=== PATIENT | male | born 1935 | race Caucasian/White ===

== ENCOUNTER 2018-07-21 14:40 | Inpatient (IN) | payer MEDICARE ==
[~2018-07-21] VITALS: Ht 167.6 cm; Wt 85.0 kg
[~2018-07-21 14:40] MED LIST: ACET500 PO; ASCO1ER PO; Aspirin EC81 MG PO; CYAN500 PO; D3-20002000 UNIT PO; Flovent Diskus50 MCG; GLIP2.5ER PO; HYDPAM50 PO; LISI20 PO; METO50ER PO; MUCINEX FAST-M1 EAC1 PO; MULVITMINF PO; OMEP20ER PO; OXYACE5T PO; PIOG30 PO; PSYL5.85P; Pataday2.5 ML BOTHEYES; VITAMIN D3 PO; Vitamin C1000 M1; WARF5 PO; XARELTO
[2018-07-21 15:43] LABS: BASOPHILS ABSOLUTE AUTO 0.01 K/mm3 (0.00-0.23); BASOPHILS PERCENT AUTO 1 % (0-2); EOSINOPHILS ABSOLUTE AUTO 0.01 K/mm3 (0.00-0.68); EOSINOPHILS PERCENT AUTO 1 % (0-6); Hematocrit 39.3 % (37.0-53.0); Hemoglobin 12.3 g/dL (13.5-17.5); IMMATURE GRAN PERCENT AUTO 0 % (0-1); LYMPHOCYTES ABSOLUTE AUTO 0.49 K/mm3 (0.84-5.20); LYMPHOCYTES PERCENT AUTO 27 % (21-46); MONOCYTES ABSOLUTE AUTO 0.02 K/mm3 (0.16-1.47); MONOCYTES PERCENT AUTO 1 % (4-13); Mean Corpuscular HGB 30.3 pg (26.0-34.0); Mean Corpuscular HGB Conc 31.3 g/dL (31.5-36.5); Mean Corpuscular Volume 97 fL (80-100); Mean Platelet Volume 10.4 fL (9.1-12.4); NEUTROPHILS PERCENT AUTO 71 % (41-73); Platelet Count 88 K/mm3 (150-400); RDW Coefficient Variation 14.6 % (11.7-14.2); RDW Standard Deviation 52.7 fL (35.1-46.3); Red Blood Cell Count 4.06 M/mm3 (4.30-5.90); White Blood Cell Count 1.83 K/mm3 (4.00-11.30)
[2018-07-21 16:14] LABS: Albumin, Blood 3.4 g/dL (3.4-5.0); Bilirubin, Total 1.7 mg/dL (0.1-1.0); Bun/Creatinine Ratio 18.8 (12.0-20.0); Calcium, Blood 8.5 mg/dL (8.5-10.1); Creatinine, Blood 1.28 mg/dL (0.60-1.20); Globulin, Blood 3.3 g/dL (2.2-4.0); Potassium, Blood 3.9 mmol/L (3.5-5.5); Total Protein, Blood 6.7 g/dL (6.4-8.2); Troponin I 0.421 ng/mL (0.000-0.040)
[2018-07-21 17:29] LABS: Source, Urine Clean Catch
[2018-07-21 17:47] LABS: Appearance, Urine Cloudy (Clear); Bilirubin, Urine Neg (Neg); Blood, Urine 5+ (Neg); Color, Urine Amber (P-Yellow); Glucose Qualitative, Urine Neg (Neg); Ketones, Urine 1+ (Neg); Leukocyte Esterase, Urine 3+ (Neg); Nitrite, Urine Pos (Neg); Protein, Urine 3+ (Neg); Urobilinogen, Urine NORM (Normal)
[2018-07-21 18:07] LABS: Squamous Epithelial Cells Not Seen /hpf (Few)
[2018-07-21 18:08] LABS: Bacteria Many /hpf; Red Blood Cells, Urine TNTC /hpf (0-2); White Blood Cells, Urine TNTC /hpf (0-5)
--- NOTE | 2018-07-21 19:15 | NUR ---
ASSUMING CARE OF PT AT THIS TIME. PT REPORT RECEIVED AT BEDSIDE WITH OFFGOING NURSE, RAMON PENNY. PT LAYING IN BED, SLEEPING UPON ENTERING THE ROOM. PT HYPOTENSIVE (SEE VS FS). OTHERWISE, VS STABLE (SEE VS FS). DR. AMBROCIO AT BEDSIDE AT THIS TIME. DR. AMBROCIO INSTRUCTED TO ADMINISTERED 1L NS BOLUS AND ALBUMIN 25 MG AT THIS TIME. WAITING FOR VERIFICATION OF MEDICATIONS AND WAITING FOR ALBUMIN FROM PHARMACY AT THIS TIME. OTHERWISE, PT DOES NOT APPEAR TO BE IN DISTRESS AT THIS TIME. NO FAMILY AT BEDSIDE. WILL REVIEW PLAN OF CARE.
--- NOTE | 2018-07-21 19:17 | NUR ---
Patient arrived from ER with two liters of NS infusing and finishing. Started NS with 20meq of potassium at 125ml/hr, Placed 10Fr hopkins catheter difficult placement and got back dark laurita urine. Did not send UA as there was one done with in and out cath in ER. He has 20ga IV in [place] infusing fluids, dressing intact and site WNL's. He also has 20 ga RW dressing intact and site WNL's and is flushed and SL's.
--- NOTE | 2018-07-21 19:30 | NUR ---
ASSESSMENT HEMALATHA NAVARRO AT BEDSIDE TO INSERT PICC LINE. UNABLE TO INSERT PICC LINE AT THIS TIME. 1L NS BOLUS INFUSING. ALBUMIN 25G INFUSING. DR. AMBROCIO PLANNING TO COME BACK TO BEDSIDE. PT RESPONDS TO VEBRAL STIMULI, SPONT OPENS EYES, CALM, QUIET, COOPERATIVE, A&O TO SELF, FOLLOWS COMMANDS, SLOW TO RESPOND, CONFUSED, HARD OF HEARING, ANSWERS SOME QUESTIONS. PT'S SIGNIFICANT OTHER, CHRISTIE, AT BEDSIDE. PT AND CHRISTIE UNABLE TO PROVIDE MEDICAL HISTORY AND MEDICATION LIST. ACCORDING TO CHRISTIE, PT HAS BEEN EXPERIEICING DEMENTIA AND LIVES ALONE IN A HOUSE. SENSATION INTACT. DENIES N/T. PT SEPULVEDA. WEAK MOVEMENT NOTED. PT ASSISTS WITH REPOSITIONING. PT BEDBOUND D/T HYPOTENSION. PT DENIES PAIN/DISCOMFORT. NO S/SX OF PAIN/DISCOMFORET NOTED. LUNGS CLEAR, LOWER LOBES DIMINIHSED. PT ON RA WHILE AWAKE WITH OXY SAT 90% AND GREATER. PT PLACED ON 2L NC WHILE SLEEPING. OXY SAT 90% AND GREATER WHILE ON 2L NC AND SLEEPING. OCC NONRODUCTIVE, WEAK COUGH. RR 18. DENIES SOB. AFEBRILE. NSR WITH BBB AND FREQUENT PAC'S. OCC PACEMAKER SPIKES. PT HYPOTESNSIVE. 1L NS BOLUS AND ALBUMIN 25G INFUSING. NS WITH KCL 20 MEQ INFUSING AT 125 ML/HR. STRONG RADIAL PULSES. FAINT TIBIAL AND PEDAL PULSES. WARM, PALE SKIN. HYPOACTIVE BT X4 QUADRANTS. ABD SOFT, NONTENDER. NO N/V. NO BM. NPO. F/C PLACED BY HEMALATHA NAVARRO PRIOR TO ONCOMING SHIFT. DARK, DOC UO NOTED. PIV X2. NS WITH KCL 20 MEQ AT 125 ML/HR INFUSING.
--- NOTE | 2018-07-21 21:10 | NUR ---
DR. AMBROCIO PT REMAINS HYPOTENSIVE (SEE VS FS). ALBUMIN 25 MG FINISHED INFUSING. 1L NS BOLUS CONTINUES TO INFUSE. DR AMBROCIO AT BEDSIDE TO RECEIVE PT HX FROM CHRISTIE (PT'S SIGNIFICANT OTHER). CHRISTIE UNABLE OT PROVIDE EXTENSIVE MEDICATION AND MEDICAL HX. PT UNABLE TO PROVIDE MEDICAITION AND MEDICAL HX. DR. AMBROCIO ORDERED ADDITIONAL ALBUMIN 25 MG AT THIS TIME. WAITING FOR MEDICATION FROM PHARMACY AT THIS TIME. DR. AMBROCIO PLANNING TO INSERT CENTRAL LINE. KRYSTA SOTO RN AT BEDSIDE TO ASSIST WITH CENTRAL LINE INSERTION.
--- NOTE | 2018-07-21 22:45 | NUR ---
CENTRAL LINE INSERTION HEMALATHA LU AND HEMALATHA SOTO ASSISTED WITH CENTRAL LINE INSERTION. LEVOPHED STARTED WHILE INSERTING CENTRAL LINE. LEVOPHED DRIP - WILL TITRATE TO EFFECT. CENTRAL LINE INSERTION REQUIRED SEVERAL ATTEMPTS. SEE WOUND ASSESSMENT FOR FURTHER INFORMATION. CENTRAL LINE INSERTED IN LEFT GROIN SITE. DR. AMBROCIO VERIFIED PLACEMENT OF CENTRAL LINE. CHEST XRAY COMPLETED. DR AMBROCIO VERIFIED THERE IS NO PNEUMO. DR. AMBROCIO PLANNING TO REVIEW PT'S CHART. DR. AMBROCIO INSTRUCTED TO D/C LOVENOX, TITRATE LEVOPHED TO MAINTAIN MAP 60 AND GREATER, AND TITRATE OXYGEN TO MAINTAIN SPO2 88% AND GREATER. DR. AMBROCIO PLANNING TO ODER ADDITIONAL ALBUMN 25G. WAITING FOR ALBUMIN FROM PHARMACY AT THIS TIME. DR AMBROCIO PLANNING TO INCREASED NS WITH 20 MEQ OF KCL TO 150 ML/HR. WAITING FOR ORDER AT THIS TIME.
--- NOTE | 2018-07-21 23:20 | NUR ---
DR. AMBROCIO PT PULLING AT LINES/CORDS/TUBES. PT PULLED ON SPO2 PROBE, BP CUFF, TELE MONITORS, AND DNR BAND. NEW SPO2 PROBE, BP CUFF, TELE MONITORS, AND DNR BAND PLACED. PT PLACED IN BILAT WRIST RESTRAINTS TO PROTECT VITAL LINES/CORDS/TUBES.
[2018-07-22 03:31] LABS: Hematocrit 28.1 % (37.0-53.0); Mean Corpuscular HGB 30.9 pg (26.0-34.0); Mean Corpuscular Volume 97 fL (80-100); Mean Platelet Volume 10.8 fL (9.1-12.4); RDW Coefficient Variation 14.9 % (11.7-14.2); Red Blood Cell Count 2.91 M/mm3 (4.30-5.90); White Blood Cell Count 8.86 K/mm3 (4.00-11.30)
[2018-07-22 03:45] LABS: Platelet Count 49 K/mm3 (150-400)
[2018-07-22 03:51] LABS: Albumin, Blood 3.2 g/dL (3.4-5.0); Albumin/Globulin Ratio 1.3 (0.8-1.8); Bilirubin, Total 1.1 mg/dL (0.1-1.0); Bun/Creatinine Ratio 17.4 (12.0-20.0); Calcium, Blood 7.2 mg/dL (8.5-10.1); Creatine Kinase MB 3.6 ng/mL (0.0-3.6); Creatine Kinase MB Index 0.9 (0.0-4.0); Creatinine, Blood 1.67 mg/dL (0.60-1.20); Globulin, Blood 2.4 g/dL (2.2-4.0); Magnesium, Blood 1.4 mg/dL (1.6-2.4); Phosphorus, Blood 3.1 mg/dL (2.5-4.9); Potassium, Blood 3.1 mmol/L (3.5-5.5); Total Protein, Blood 5.6 g/dL (6.4-8.2)
[2018-07-22 04:16] LABS: Troponin I 0.838 ng/mL (0.000-0.040)
--- NOTE | 2018-07-22 04:30 | NUR ---
DR. AMBROCIO PAGED DR. AMBROCIO AT [id number]. [address]. AMBROCIO CALLED ICU AT THIS TIME. INFORMED DR. AMBROCIO OF AM LABS. DR. AMBROCIO D/C NS WITH KCL 20 MEQ AT 150 ML/HR, ORDERED 1/2 NS WITH KCL 20 MEQ @ 150 ML/HR, ORDERED KCL 40 MEQ IVPB, AND ORDERED MAG IVPB 2,000 MG. WAITING FOR MEDICATIONS FROM PHARMACY AT THIS TIME.
--- NOTE | 2018-07-22 04:49 | NUR ---
SHIFT ASSESSMENT PT RESPONDS TO VERBAL STIMULI, SPONT OPENS EYES, CALM, QUIET, COOPERATIVE, A&O TO SELF, FOLLOWS COMMANDS, SLOW TO RESPOND, CONFUSED, HARD OF HEARING, ANSWERS SOME QUESTIONS. PT IN BILAT WRIST RESTRAINTS TO PROTECT VITAL LINES/CORDS/TUBES. BED ALARM ON. SIDE RAILS UP. SENSATION INTACT. DENIES /T. PT SEPULVEDA. WEAK MOVEMENT NOTED. PT ASSISTS WITH REPOSITIOPNING. PT DENIES PAIN/DISCOMOFRT. NO S/SX OF PAIN/DISCOMFORT NOTED. LUNGS CLEAR, LOWER LOBES DIMINISHED. PT ON RA WHILE AWAKE. OXY SAT 90% AND GREATER WHILE ON RA AND AWAKE. OXY SAT <88% WHILE ON RA AND SLEEPING. THUS, PT PLACED ON 2L NC WHILE SLEEPING. OXY SAT REMAINED 90% AND GREATER ON 2L NC WHILE SLEEPING. ACCORDING TO CHRISTIE, PT DOES NOT UTILIZE OXYGEN, CPAP, OR BIPAP AT HOME. OCC NONPRODUCTIVE, WEAK COUGH. RR 16 TO 30'S. DENIES SOB. TMAX 99.3 THAT RESOLVED WITH FAN, DECREASING ROOM TEMP, AND REMOVING BLANKETS. CURRENTLY AFEBRILE. NSR WITH BBB AND FREQ PAC'S. OCC PACEMAKER SPIKES. HYPOTENSION RESOLVED T/O SHIFT WITH 1L NS BOLUS, ALBUMIN, AND LEVOPHED DRIP. LEVOPHED DRIP CURRENTLY ON STANDBY. STRONG RADIAL PULSES. FAINT TIBIAL AND PEDAL PULSES. WARM, PALE SKIN. NO CHANGES TO WOUND SITES. WOUND SITES REMAIN STABLE. SEE WOUND ASSESSMENT FOR ADDITIONAL INFORMATION. HYPOACTIVE BT X4 QUADRANTS. ABD SOFT, NONTENDER. NO N/V. NO BM. NPO. F/C: DARK DOC COLORED UO. PIV X2. NS WITH KCL 20 MEQ INFUSING AT 150 ML/HR. WAITING FOR VERIFICATION OF 1/2 NS WITH KCL 20 MEQ AT 150 ML/HR, KCL 40 MEQ, AND MAG IVPB 2,000 MG FROM PHARMACY AT THIS TIME. WILL CONT TO MONITOR PT AND WILL PROVIDE BEDSIDE REPORT TO ONCOMING NURSE THIS AM.
[2018-07-22 05:43] LABS: BAND PERCENT MAN 10 % (0-8); BASOPHILS PERCENT MAN 0 % (0-2); EOSINOPHILS PERCENT MAN 0 % (0-6); LYMPHOCYTES ABSOLUTE MAN 0.08 K/mm3 (0.84-5.20); LYMPHOCYTES PERCENT MAN 1 % (21-46); METAMYELOCYTE ABSOLUTE MAN 0.08 K/mm3 (0.00-0.00); METAMYELOCYTE PERCENT MAN 1 % (0-0); MONOCYTES PERCENT MAN 0 % (4-13); NEUTROPHILS ABSOLUTE MAN 8.68 K/mm3 (1.96-9.15); SEG NEUTROPHILS PERCENT MAN 88 % (41-73); TOTAL CELLS COUNTED 100
--- NOTE | 2018-07-22 09:47 | NUR ---
CARE ASSUMED CARE AND REPORT ASSUMED FROM ALY PENNY. PT SITTING UP IN BED. CONFUSED AT START OF SHIFT AND IN BUE IN RESTRAINTS. REMOVED DURING AM ASSESSMENT PT WAS MUCH MORE A/O. NOW ORIENTED TO PERSON, TIME, AND JUST NEEDED TO BE REMINDED HE WAS IN THE HOSPITAL. ALSO REMINDED PT TO LEAVE HIS TOBIAS CATHETER ALONE AND HIS CENTRAL LINE; DISPLAYS UNDERSTANDING. UP TO BEDSIDE COMMODE WITH 1 ASSIST; RECEIVED BEDBATH AND LINEN CHANGE. PT HAS BEEN COOPERATIVE AND ENGAGED IN CARE THIS AM. VSS. NSR, 60S WITH OCCASIONAL PACER SPIKES. BP 104/70. NO S/S PAIN. TEMP 99.1. TOBIAS CATH SECURED, URINE YELLOW AND CLOUDY. CENTRAL LINE SECURED IN L GROIN. 1/2 NS WITH 20 KCL INFUSING ALONG WITH K+ REPLACEMENT. HARD OF HEARING. SPEECH EVAL AT BEDSIDE NOW. WILL CONTINUE TO MONITOR.
--- NOTE | 2018-07-22 12:24 | NUR ---
REASSESSMENT PASSED SPEECH EVAL THIS AM AND SOFT DIET ORDERED. HAS HAD MULTIPLE DIARRHEA BOWEL MOVEMENTS. HAD 3 BLOODY DIARRHEA BOWEL MOVEMENTS. UP TO BEDSIDE COMMODE WITH 1 ASSIST. PT OOZING FROM L GROIN CENTRAL LINE INSERTION SITE AND FROM OTHER ATTEMPT SITES IN R GROIN AND NECK. MD LIN AWARE OF DIARRHEA, BLOODY OOZE FROM SITES, AND BLOODY BOWEL MOVEMENTS. GI CONSULT CALLED TO MD LONGORIA. 1/2 NS WITH 20 KCL CONTINUES TO INFUSE PER ORDER. PT CONFUSED WHEN ASKED QUESTIONS, BUT IS ABLE TO FOLLOW COMMANDS APPROPRIATELY. FRIEND BEDSIDE AND VISITED WITH PT FOR AWHILE. WILL CONTINUE TO MONITOR.
[2018-07-22 16:55] LABS: Hematocrit 28.7 % (37.0-53.0); Hemoglobin 9.2 g/dL (13.5-17.5)
--- NOTE | 2018-07-22 18:33 | NUR ---
SHIFT SUMMARY PT CONFUSED IN AM BUT THIS AFTERNOON, HE IS MORE ALERT AND ORIENTED X 3. COMPLAINED OF MILD ABDOMINAL PAIN DURING SHIFT. UP TO BEDSIDE COMMODE MULITPLE TIMES FOR DIARRHEA; WITH 2-3 BLOODY BOWEL MOVEMENTS. MD LONGORIA CONSULTED AND PLAN IS TO MONITOR FOR NOW. NO PRESSORS DURING ENTIRE SHIFT. CENTRAL LINE DRESSING CHANGED THIS AFTERNOON, SINCE PT HAD BEEN OOZING FROM INSERTION SITE. TOBIAS CATH REMAINS PATENT AND HAS DONE SO ENTIRE SHIFT. VISITED WITH SPECIAL FRIEND AT BEDSIDE DURING SHIFT. VSS ENTIRE SHIFT WITH MAP GREATER THAN 65. NO VOMITING DURING SHIFT. WILL GIVE BEDSIDE, HANDOFF REPORT TO NOC RN.
--- NOTE | 2018-07-22 19:00 | NUR ---
ASSUMPTION OF CARE: Pt resting in bed, A&O x4, up to BSC with one person assist. Pt hard of hearing, follows commands appropriately. VSS, pt denies any pain at this time. Peripheral IV x2, SL. Central line to Lt groin, infusing fluids, dressing intact with scant blood drainage noted from insertion site. Bruising noted to Rt neck and Rt groin area. Bryant intact and draining cloudy, dark yellow urine. Pt notes occasional GI discomfort and diarrhea.
--- NOTE | 2018-07-22 22:45 | NUR ---
HOPKINS CATHETER: Pt found attempting to get out of bed with hopkins drainage tube disconnected and on floor. Sterile technique used to clean distal end of catheter and new drainage bag connected. Hopkins was not replaced due to small catheter size and difficult insertion. Pt reeducated public relations consultant light and bed alarm activated at this time.
--- NOTE | 2018-07-23 00:31 | NUR ---
Change in fluid rate: Patient noted to have expiratory wheezing in upper lobes and fine crackles in rt middle/lower lobes. Patient continues to maintain O2-94-96% on RA and denies SOB/dyspnea. Contacted Dr. Escoto and expressed concern for possible fluid overload. Received order to decrease 1/2NS with 20meq KCl form 150ml/hr to 75ml/hr. Will continue to monitor.
[2018-07-23 04:13] LABS: Hematocrit 29.2 % (37.0-53.0); Hemoglobin 9.4 g/dL (13.5-17.5); Mean Corpuscular HGB 30.9 pg (26.0-34.0); Mean Corpuscular HGB Conc 32.2 g/dL (31.5-36.5); Mean Corpuscular Volume 96 fL (80-100); Mean Platelet Volume 10.7 fL (9.1-12.4); RDW Coefficient Variation 14.9 % (11.7-14.2); RDW Standard Deviation 53.1 fL (35.1-46.3); Red Blood Cell Count 3.04 M/mm3 (4.30-5.90); White Blood Cell Count 7.33 K/mm3 (4.00-11.30)
[2018-07-23 04:27] LABS: Platelet Count 40 K/mm3 (150-400)
[2018-07-23 04:35] LABS: Alanine Aminotransfer (ALT/SGP 64 U/L (12-78); Albumin, Blood 2.9 g/dL (3.4-5.0); Albumin/Globulin Ratio 1.1 (0.8-1.8); Alk Phos 60 U/L (50-136); Anion Gap 9 mmol/L (6-16); Aspartate Aminotrans (AST/SGOT 86 U/L (12-37); Bilirubin, Total 0.7 mg/dL (0.1-1.0); Blood Urea Nitrogen 23 mg/dL (8-24); Bun/Creatinine Ratio 25.3 (12.0-20.0); CO2, Blood 19 mmol/L (21-32); Calcium, Blood 7.6 mg/dL (8.5-10.1); Chloride, Blood 117 mmol/L (98-108); Creatinine, Blood 0.91 mg/dL (0.60-1.20); Globulin, Blood 2.6 g/dL (2.2-4.0); Glomerular Filtration Rate >60 (60-); Glucose, Blood 102 mg/dL (70-99); Potassium, Blood 3.7 mmol/L (3.5-5.5); Sodium, Blood 145 mmol/L (136-145); Total Protein, Blood 5.5 g/dL (6.4-8.2)
[2018-07-23 04:44] LABS: Troponin I 0.902 ng/mL (0.000-0.040)
[2018-07-23 05:16] LABS: BAND PERCENT MAN 18 % (0-8); BASOPHILS PERCENT MAN 0 % (0-2); EOSINOPHILS PERCENT MAN 0 % (0-6); LYMPHOCYTES ABSOLUTE MAN 0.29 K/mm3 (0.84-5.20); LYMPHOCYTES PERCENT MAN 4 % (21-46); METAMYELOCYTE ABSOLUTE MAN 0.07 K/mm3 (0.00-0.00); METAMYELOCYTE PERCENT MAN 1 % (0-0); MONOCYTES ABSOLUTE MAN 0.07 K/mm3 (0.16-1.47); MONOCYTES PERCENT MAN 1 % (4-13); NEUTROPHILS ABSOLUTE MAN 6.74 K/mm3 (1.96-9.15); SEG NEUTROPHILS PERCENT MAN 74 % (41-73); TOTAL CELLS COUNTED 100
[2018-07-23 05:17] LABS: MYELOCYTE ABSOLUTE MAN 0.14 K/mm3 (0.00-0.00); MYELOCYTE PERCENT MAN 2 % (0-0)
--- NOTE | 2018-07-23 06:42 | NUR ---
SHIFT SUMMARY: Pt remains alert and oriented x4, VSS with O2 92-96% on RA. Pt developed fine crackles in lower lobes, maintenance fluids were decreased to 75ml and a one time dose of lasix was given as per provider orders. Pt up to BSC several times throughout shift with scant to small brown loose stool. Pt attempted to get out of bed without assistance (see TOBIAS CATH note), was reeducated rehabilitation services director light use and continued to use call light appropriately throughout shift. Tobias cath in place and draining cloudy, dark, yellow urine. Peripheral IV in place to SL and Central line to L groin in place and infusing.
--- NOTE | 2018-07-23 09:38 | NUR ---
PT ASSISTED TO BATHROOM TWICE THIS AM. SLIGHTLY WEAK BUT STEADY ON FEET. PT HAD TWO SMALL LIQUID GREEN BM'S. PT DENIES C/O NAUSEA OR ABD PAIN. PT IS VERY RELUCTANT TO DRINK FLUIDS HE STATES THEY GO STRAIGHT THROUGH ME. PT ENCOURAGED TO DRINK CLEAR ENSURE IN WHICH HE DID. DR LONGORIA IN TO SEE PT; NO PLANS FOR A SCOPE.
--- NOTE | 2018-07-23 19:19 | NUR ---
TRANSFER NOTE/ SHIFT SUMMARY RECEIVED REPORT FROM ALYSSA SCHAFFER RN IN ICU. PT TO ROOM AT 1350. PT ORIENTED TO ROOM AND CALL LIGHT. PT EDUCATED ON FALL RISK AND BED ALARM. PT A&Ox3, CONFUSED AT TIMES, EASILY REDIRECTABLE. PT DENIES PAIN AND N/V DURING SHIFT. SOB WITH EXERTION, >92% ON RA, LS CRACKLE IN BASES. PT RECEIVING ANTIBIOTICS. TOBIAS PATENT AND DRAINING. PT CONTINUES TO HAVE SMALL, LOOSE, GREEN BM, SPECIMEN COLLECTED AND SENT PER ORDERS. ELEVATED BP NOTED, OTHER VSS. 1 PERSON ASSIST TO BSC. NO OTHER ACUTE CHANGES NOTED DURING SHIFT. REPORT GIVEN TO ONCOMING RN.
[2018-07-23 20:09] LABS: Adenovirus F 40/41 Not Detected (NOT DETECT); Astrovirus Not Detected (NOT DETECT); Campylobacter Sp Not Detected (NOT DETECT); Cryptosporidium Not Detected (NOT DETECT); Cyclospora Cayetanensis Not Detected (NOT DETECT); E. Coli O157 Not Detected (NOT DETECT); Entamoeba Histolytica Not Detected (NOT DETECT); Enteroaggregative E. coli-EAEC Not Detected (NOT DETECT); Enteropathogenic E. coli-EPEC Not Detected (NOT DETECT); Enterotoxigenic E. coli-ETEC Not Detected (NOT DETECT); Giardia Lamblia Not Detected (NOT DETECT); Norovirus GI/GII Not Detected (NOT DETECT); Plesiomonas Shigelloides Not Detected (NOT DETECT); Rotavirus A Not Detected (NOT DETECT); Salmonella Sp Not Detected (NOT DETECT); Sapovirus Not Detected (NOT DETECT); Shiga Toxin-prod E. coli-STEC Not Detected (NOT DETECT); Shigella/Enteroin E. coli-EIEC Not Detected (NOT DETECT); Vibrio Cholerae Not Detected (NOT DETECT); Vibrio Sp Not Detected (NOT DETECT); Yersinia Enterocolitica Not Detected (NOT DETECT)
[2018-07-24 05:18] LABS: BASOPHILS PERCENT AUTO 0 % (0-2); EOSINOPHILS PERCENT AUTO 0 % (0-6); Hemoglobin 9.8 g/dL (13.5-17.5); IMMATURE GRAN ABSOLUTE AUTO 0.03 K/mm3 (0.00-0.10); IMMATURE GRAN PERCENT AUTO 0 % (0-1); LYMPHOCYTES ABSOLUTE AUTO 0.69 K/mm3 (0.84-5.20); LYMPHOCYTES PERCENT AUTO 9 % (21-46); MONOCYTES ABSOLUTE AUTO 0.31 K/mm3 (0.16-1.47); MONOCYTES PERCENT AUTO 4 % (4-13); Mean Corpuscular HGB 30.9 pg (26.0-34.0); Mean Corpuscular HGB Conc 32.7 g/dL (31.5-36.5); Mean Corpuscular Volume 95 fL (80-100); Mean Platelet Volume 11.7 fL (9.1-12.4); NEUTROPHILS ABSOLUTE AUTO 6.38 K/mm3 (1.96-9.15); NEUTROPHILS PERCENT AUTO 86 % (41-73); RDW Coefficient Variation 14.4 % (11.7-14.2); RDW Standard Deviation 50.5 fL (35.1-46.3); Red Blood Cell Count 3.17 M/mm3 (4.30-5.90); White Blood Cell Count 7.41 K/mm3 (4.00-11.30)
[2018-07-24 05:43] LABS: Alanine Aminotransfer (ALT/SGP 54 U/L (12-78); Albumin, Blood 2.8 g/dL (3.4-5.0); Alk Phos 56 U/L (50-136); Anion Gap 8 mmol/L (6-16); Aspartate Aminotrans (AST/SGOT 60 U/L (12-37); Bilirubin, Total 0.8 mg/dL (0.1-1.0); Blood Urea Nitrogen 19 mg/dL (8-24); Bun/Creatinine Ratio 24.8 (12.0-20.0); CO2, Blood 20 mmol/L (21-32); Calcium, Blood 7.7 mg/dL (8.5-10.1); Chloride, Blood 118 mmol/L (98-108); Creatinine, Blood 0.77 mg/dL (0.60-1.20); Globulin, Blood 2.8 g/dL (2.2-4.0); Glomerular Filtration Rate >60 (60-); Glucose, Blood 113 mg/dL (70-99); Magnesium, Blood 1.8 mg/dL (1.6-2.4); Phosphorus, Blood 2.3 mg/dL (2.5-4.9); Platelet Count 46 K/mm3 (150-400); Potassium, Blood 3.6 mmol/L (3.5-5.5); Sodium, Blood 146 mmol/L (136-145); Total Protein, Blood 5.6 g/dL (6.4-8.2); Troponin I 0.187 ng/mL (0.000-0.040)
--- NOTE | 2018-07-24 06:38 | NUR ---
SHIFT SUMMARY: NO ACUTE CHANGES TONIGHT. 1/2NS c 20MEQ K+ RUNNING AT 75ML/HR. TELE IN PLACE: 60'S c BBB PACED PER BAGGAGEMASTER TIMO KENNEY. CRITICALLY LOW PLATELET LEVEL OF 46. UP FROM 40 YESTERDAY. PT IS ALERT TO SELF, PLACE, AND FOLLOWING DIRECTIONS, VERY POARCH. NO OTHER CHANGES TO REPORT WILL CONT TO MONITOR AND PROVIDE CARE UNTIL PRESUMED BY ONCOMING RN.
--- NOTE | 2018-07-24 11:48 | NUR ---
echocardiogram completed
--- NOTE | 2018-07-24 19:46 | NUR ---
SHIFT SUMMARY PT A&Ox2, PLEASANTLY CONFUSED. PT CALM AND COOPERATIVE WITH CARE. PT RESTING IN BED DURING SHIFT. UP WITH 1 PERSON ASSIST TO BSC. PT DENIES PAIN/DISCOMFORT, SOB AND N/V DURING SHIFT. PT RECEIVING IV ANTIBIOTICS. PT CONTINUES TO HAVE BROWN/GREE LOOSE STOOL. PLT TRENDING UP, SHENA NAVARRO FROM ICU REMOVED THE FEMORAL LINE THIS AFTERNOON, MINIMAL BLEEDING NOTED. ECHO COMPLETED THIS AM. BP TRENDING DOWN, VSS. PT NEEDING TO CONTINUE IV ANTIBIOTICS OUTPATIENT, PLANS FOR SAFE DISCHARGE. TOBIAS REMOVED, PT USING URINAL THIS AFTERNOON. NO OTHER ACUTE CHANGES NOTED. REPORT GIVEN TO ONCOMING RN.
[2018-07-25 05:26] LABS: BASOPHILS ABSOLUTE AUTO 0.01 K/mm3 (0.00-0.23); BASOPHILS PERCENT AUTO 0 % (0-2); EOSINOPHILS ABSOLUTE AUTO 0.01 K/mm3 (0.00-0.68); EOSINOPHILS PERCENT AUTO 0 % (0-6); Hematocrit 32.6 % (37.0-53.0); Hemoglobin 10.8 g/dL (13.5-17.5); IMMATURE GRAN ABSOLUTE AUTO 0.05 K/mm3 (0.00-0.10); IMMATURE GRAN PERCENT AUTO 1 % (0-1); LYMPHOCYTES ABSOLUTE AUTO 1.08 K/mm3 (0.84-5.20); LYMPHOCYTES PERCENT AUTO 20 % (21-46); MONOCYTES ABSOLUTE AUTO 0.29 K/mm3 (0.16-1.47); MONOCYTES PERCENT AUTO 5 % (4-13); Mean Corpuscular HGB 30.8 pg (26.0-34.0); Mean Corpuscular HGB Conc 33.1 g/dL (31.5-36.5); Mean Corpuscular Volume 93 fL (80-100); Mean Platelet Volume 11.5 fL (9.1-12.4); NEUTROPHILS ABSOLUTE AUTO 4.08 K/mm3 (1.96-9.15); NEUTROPHILS PERCENT AUTO 74 % (41-73); Platelet Count 59 K/mm3 (150-400); RDW Standard Deviation 48.4 fL (35.1-46.3); Red Blood Cell Count 3.51 M/mm3 (4.30-5.90); White Blood Cell Count 5.52 K/mm3 (4.00-11.30)
[2018-07-25 05:57] LABS: Anion Gap 9 mmol/L (6-16); Blood Urea Nitrogen 19 mg/dL (8-24); Bun/Creatinine Ratio 25.3 (12.0-20.0); CO2, Blood 24 mmol/L (21-32); Calcium, Blood 8.2 mg/dL (8.5-10.1); Chloride, Blood 111 mmol/L (98-108); Creatinine, Blood 0.75 mg/dL (0.60-1.20); Glomerular Filtration Rate >60 (60-); Glucose, Blood 116 mg/dL (70-99); Magnesium, Blood 1.5 mg/dL (1.6-2.4); Phosphorus, Blood 2.5 mg/dL (2.5-4.9); Potassium, Blood 3.5 mmol/L (3.5-5.5); Sodium, Blood 144 mmol/L (136-145)
--- NOTE | 2018-07-25 07:39 | NUR ---
SHIFT SUMMARY: NO ACUTE CHANGES TONIGHT. CHANGED DRESSING TO R FEMORAL CENTRAL SITE. DRESSING C/D/I, BRUISING NOTED TO BILATERAL GROIN SITES AND R SIDE OF NECK. PT TOBIAS D/C'd, VOIDING WELL. PT DENIES ANY SOB, N/V, PAIN, OR DISCOMFORT. WILL CONT TO MONITOR AND PROVIDE CARE UNTIL PRESUMED BY ONCOMING RN.
--- NOTE | 2018-07-25 19:47 | NUR ---
SHIFT SUMMARY PT A&Ox3. CALM AND COOPERATIGE WITH CARE. PT APPEARS ANXIOUS AT TIMES, WHEN MAKING PLANS FOR DISCHARGE. PT UP IN CHAIR FOR MAJORITY OF SHIFT. PT DENIES PAIN, SOB AND N/V. >92% ON RA. LEFT FEMORAL SITE C/D/I. PT HAS HAD INCREASED APPETITE DUING SHIFT. VSS. NO OTHER ACUTE CHANGES NOTED DURING SHIFT. REPORT GIVEN TO ONCOMING RN.
--- NOTE | 2018-07-26 06:12 | NUR ---
SHIFT SUMMARY PT FIXATED THIS EVENING ON CERTAIN SUBJECTS. 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 TALKED AT LENGTH ABOUT BOTH. APPEARS TO BE SLIGHTLY CONFUSED BUT ANSWERS MOST QUESTIONS APPROPRIATELY. BRUISING NOTED TO R NECK AND R GROIN FROM PAST CENTRAL LINE ATTEMPTS. PT USED URINAL INDEPENDENTLY THROUGHOUT THE NIGHT. VOIDING WELL. BLADDER SCAN DONE WITH ONLY 91 ML PRESENT. THIS NURSE DID NOT VISUALIZE PT OUT OF BED THIS EVENING. PT SLEPT THROUGH MOST OF THE NIGHT. DENIED ANY PAIN. VSS. NO ACUTE CHANGES. WILL CONTINUE TO MONITOR.
[2018-07-26] MEDS ORDERED: ELIQUIS5 MG PO (14:09)
[2018-07-26] MEDS ORDERED: Rocephin 1g1 G/50 ML IV (14:09)
[2018-07-26] MEDS ORDERED: Xalatan2.5 ML BOTHEYES (14:10)
[2018-07-26] MEDS ORDERED: MAGOXI400 PO (14:10)
[2018-07-26] MEDS ORDERED: OMEPRAZOLE MAGN20 MG PO (14:12)
[2018-07-26] MEDS ORDERED: POTCHL20ER PO (14:12)
[2018-07-26] MEDS ORDERED: FURO40 PO (14:12)
--- NOTE | 2018-07-26 17:32 | NUR ---
PT DISCHARGED WITH INSTRUCTIONS. GOING HOME WITH POWERGLIDE PLACED TODAY IN [place]. APT FOR ATC 1100 07/28 FOR ABX TX. SENT WITH BELONGINGS. WC ESCORT OUTSIDE TO CAR FOR A RIDE HOME WITH HIS FRIEND. PT IS STEADY ON HIS FEET AND DRESSED HIMSELF FOR DC. PIV'S DC'D.
== END 2018-07-26 17:26 | disposition home or self-care (01) | DRG 871 ==
LOC: ER 14:40 → ICUW 17:13 → ICUE 17:13 → MEDS 07-23 13:56 → ENPENDDIS 07-26 12:31 → MEDS 07-26 17:26
PROVIDERS: Internal Medicine Critical Care Medicine; Internal Medicine Gastroenterology; Physician Assistant; ADMIT Family Medicine
PROC: 05HM33Z Insertion of Infusion Device into Right Internal Jugular Vein, Percutaneous Approach (ICD-10-PCS; principal; 2018-07-21)
PROC: 3E053XZ Introduction of Vasopressor into Peripheral Artery, Percutaneous Approach (ICD-10-PCS; 2018-07-21)
DX: A41.51 Sepsis due to Escherichia coli [E. coli] (principal); R65.21 Severe sepsis with septic shock; G93.41 Metabolic encephalopathy; I50.23 Acute on chronic systolic (congestive) heart failure; I24.8 Other forms of acute ischemic heart disease; N12 Tubulo-interstitial nephritis, not specified as acute or chronic; E87.2 Acidosis; K92.1 Melena; N17.9 Acute kidney failure, unspecified; K55.9 Vascular disorder of intestine, unspecified; G31.84 Mild cognitive impairment of uncertain or unknown etiology; I11.0 Hypertensive heart disease with heart failure; D69.6 Thrombocytopenia, unspecified; E11.9 Type 2 diabetes mellitus without complications; Z95.0 Presence of cardiac pacemaker; K74.60 Unspecified cirrhosis of liver; N20.0 Calculus of kidney; K40.90 Unilateral inguinal hernia, without obstruction or gangrene, not specified as recurrent; Z66 Do not resuscitate; F03.90 Unspecified dementia, unspecified severity, without behavioral disturbance, psychotic disturbance, mood disturbance, and anxiety; I25.10 Atherosclerotic heart disease of native coronary artery without angina pectoris; Z79.01 Long term (current) use of anticoagulants; N40.1 Benign prostatic hyperplasia with lower urinary tract symptoms; E78.5 Hyperlipidemia, unspecified; Z87.891 Personal history of nicotine dependence; E87.6 Hypokalemia; E83.42 Hypomagnesemia; D64.9 Anemia, unspecified; R19.7 Diarrhea, unspecified; Z86.718 Personal history of other venous thrombosis and embolism
CPT/HCPCS: 36415; 36556; 51701; 51703; 70450; 71045; 71046; 74176; 80048; 80053; 80069; 81001; 82550; 82553; 82947; 83605; 83690; 83735; 83880; 83993; 84100; 84484; 85014; 85018; 85025; 87040; 87077; 87086; 87186; 87493; 87507; 92610; 93005; 93010; 93306; 96365-59; 97116; 97161; 99285-25; A9270-GY; C1751; C9113; J0696; J1650; J1815; J1940; J1956; J2543; J3475; J3480; J7030; J7050; J7060; J7120; P9041; P9046

== ENCOUNTER 2018-07-27 08:32 | Day surgery (SDC) | payer MEDICARE ==
[~2018-07-27 08:32] MED LIST changes: +ELIQUIS5 MG PO; +FURO40 PO; +MAGOXI400 PO; +OMEPRAZOLE MAGN20 MG PO; +POTCHL20ER PO; +Rocephin 1g1 G/50 ML IV; +Xalatan2.5 ML BOTHEYES
== END 2018-07-27 22:44 | disposition home or self-care (01) ==
LOC: ATC 08:32
DX: A41.51 Sepsis due to Escherichia coli [E. coli] (principal); R65.20 Severe sepsis without septic shock; I11.0 Hypertensive heart disease with heart failure; I50.23 Acute on chronic systolic (congestive) heart failure; G93.41 Metabolic encephalopathy; I08.0 Rheumatic disorders of both mitral and aortic valves; K74.60 Unspecified cirrhosis of liver; N20.9 Urinary calculus, unspecified; D50.0 Iron deficiency anemia secondary to blood loss (chronic); R77.8 Other specified abnormalities of plasma proteins; D69.6 Thrombocytopenia, unspecified; E11.9 Type 2 diabetes mellitus without complications; Z79.899 Other long term (current) drug therapy; Z79.02 Long term (current) use of antithrombotics/antiplatelets; Z79.84 Long term (current) use of oral hypoglycemic drugs
CPT/HCPCS: 96365; J0696

== ENCOUNTER 2018-07-29 00:01 | Day surgery (SDC) | payer MEDICARE | END 2018-07-29 11:20 | disposition home or self-care (01) | LOC: ATC 00:01 | DX: A41.51 Sepsis due to Escherichia coli [E. coli] (principal); R65.20 Severe sepsis without septic shock; N12 Tubulo-interstitial nephritis, not specified as acute or chronic; K92.1 Melena; D50.0 Iron deficiency anemia secondary to blood loss (chronic); G93.41 Metabolic encephalopathy; K74.60 Unspecified cirrhosis of liver; I11.0 Hypertensive heart disease with heart failure; I50.23 Acute on chronic systolic (congestive) heart failure; D69.6 Thrombocytopenia, unspecified; E11.9 Type 2 diabetes mellitus without complications; M19.90 Unspecified osteoarthritis, unspecified site; Z95.0 Presence of cardiac pacemaker; Z79.01 Long term (current) use of anticoagulants; Z87.11 Personal history of peptic ulcer disease | CPT/HCPCS: 96365; J0696 ==

== ENCOUNTER 2018-07-30 10:09 | Day surgery (SDC) | payer MEDICARE | END 2018-07-30 11:29 | disposition home or self-care (01) | LOC: ATC 10:09 | DX: A41.51 Sepsis due to Escherichia coli [E. coli] (principal); R65.20 Severe sepsis without septic shock; N12 Tubulo-interstitial nephritis, not specified as acute or chronic; K92.1 Melena; D50.0 Iron deficiency anemia secondary to blood loss (chronic); G93.41 Metabolic encephalopathy; G31.84 Mild cognitive impairment of uncertain or unknown etiology; D69.6 Thrombocytopenia, unspecified; E11.9 Type 2 diabetes mellitus without complications; I10 Essential (primary) hypertension; M19.90 Unspecified osteoarthritis, unspecified site; I11.0 Hypertensive heart disease with heart failure; I50.23 Acute on chronic systolic (congestive) heart failure; K74.60 Unspecified cirrhosis of liver | CPT/HCPCS: 96365; J0696 ==

== ENCOUNTER 2018-07-31 09:31 | Day surgery (SDC) | payer MEDICARE | END 2018-07-31 10:17 | disposition home or self-care (01) | LOC: ATC 09:31 | DX: A41.51 Sepsis due to Escherichia coli [E. coli] (principal); R65.20 Severe sepsis without septic shock; N12 Tubulo-interstitial nephritis, not specified as acute or chronic; K92.1 Melena; D50.0 Iron deficiency anemia secondary to blood loss (chronic); E11.9 Type 2 diabetes mellitus without complications; I10 Essential (primary) hypertension; D69.6 Thrombocytopenia, unspecified; G93.41 Metabolic encephalopathy | CPT/HCPCS: 96365; J0696 ==

== ENCOUNTER 2018-08-03 09:45 | Day surgery (SDC) | payer MEDICARE | END 2018-08-03 22:53 | disposition home or self-care (01) | LOC: ATC 09:45 | DX: A41.51 Sepsis due to Escherichia coli [E. coli] (principal); R65.20 Severe sepsis without septic shock; N12 Tubulo-interstitial nephritis, not specified as acute or chronic; K92.1 Melena; G93.41 Metabolic encephalopathy; D50.0 Iron deficiency anemia secondary to blood loss (chronic); K74.60 Unspecified cirrhosis of liver; I11.0 Hypertensive heart disease with heart failure; I50.23 Acute on chronic systolic (congestive) heart failure; R77.8 Other specified abnormalities of plasma proteins; N20.9 Urinary calculus, unspecified; D69.6 Thrombocytopenia, unspecified; M19.90 Unspecified osteoarthritis, unspecified site | CPT/HCPCS: J0696 ==

== ENCOUNTER 2018-08-04 00:21 | Day surgery (SDC) | payer MEDICARE | END 2018-08-04 10:48 | disposition home or self-care (01) | LOC: ATC 00:21 | DX: A41.51 Sepsis due to Escherichia coli [E. coli] (principal); R65.20 Severe sepsis without septic shock; I11.0 Hypertensive heart disease with heart failure; I50.23 Acute on chronic systolic (congestive) heart failure; E11.9 Type 2 diabetes mellitus without complications; I08.0 Rheumatic disorders of both mitral and aortic valves; N12 Tubulo-interstitial nephritis, not specified as acute or chronic; K76.9 Liver disease, unspecified; K92.1 Melena; D50.9 Iron deficiency anemia, unspecified; D69.6 Thrombocytopenia, unspecified | CPT/HCPCS: 96365; J0696 ==

== ENCOUNTER 2019-01-25 15:25 | Inpatient (IN) | payer MEDICARE ==
[~2019-01-25] VITALS: Ht 172.7 cm; Wt 63.5 kg
[2019-01-25 15:55] LABS: Calcium, Ionized (POC) 1.08 mmol/L (1.10-1.46); Chloride (POC) 108 mmol/L (98-108); Creatinine (POC) 1.7 mg/dL (0.8-1.3); Glucose (ISTAT POC) 244 mg/dL (70-99); Hemoglobin (POC) 6.5 g/dL (13.5-17.5); Sodium (POC) 137 mmol/L (135-148); Total CO2 (POC) 14 mmol/L (21-32)
[2019-01-25 16:09] LABS: BASOPHILS ABSOLUTE AUTO 0.02 K/mm3 (0.00-0.23); BASOPHILS PERCENT AUTO 0 % (0-2); EOSINOPHILS ABSOLUTE AUTO 0.02 K/mm3 (0.00-0.68); EOSINOPHILS PERCENT AUTO 0 % (0-6); Hemoglobin 6.9 g/dL (13.5-17.5); IMMATURE GRAN ABSOLUTE AUTO 0.03 K/mm3 (0.00-0.10); IMMATURE GRAN PERCENT AUTO 0 % (0-1); LYMPHOCYTES ABSOLUTE AUTO 2.46 K/mm3 (0.84-5.20); LYMPHOCYTES PERCENT AUTO 28 % (21-46); MONOCYTES ABSOLUTE AUTO 0.52 K/mm3 (0.16-1.47); MONOCYTES PERCENT AUTO 6 % (4-13); Mean Corpuscular HGB 29.6 pg (26.0-34.0); Mean Corpuscular Volume 99 fL (80-100); Mean Platelet Volume 9.7 fL (9.1-12.4); NEUTROPHILS PERCENT AUTO 65 % (41-73); Platelet Count 254 K/mm3 (150-400); RDW Standard Deviation 46.1 fL (35.1-46.3); Red Blood Cell Count 2.33 M/mm3 (4.30-5.90); White Blood Cell Count 8.65 K/mm3 (4.00-11.30)
[2019-01-25 16:24] LABS: Alanine Aminotransfer (ALT/SGP 29 U/L (12-78); Albumin, Blood 3.1 g/dL (3.4-5.0); Alk Phos 66 U/L (50-136); Anion Gap 16 mmol/L (6-16); Aspartate Aminotrans (AST/SGOT 20 U/L (12-37); Bilirubin, Total 0.4 mg/dL (0.1-1.0); Blood Urea Nitrogen 43 mg/dL (8-24); Bun/Creatinine Ratio 27.4 (12.0-20.0); CO2, Blood 14 mmol/L (21-32); Calcium, Blood 8.4 mg/dL (8.5-10.1); Chloride, Blood 110 mmol/L (98-108); Creatinine, Blood 1.57 mg/dL (0.60-1.20); Glomerular Filtration Rate 45 (60-); Glucose, Blood 235 mg/dL (70-99); Potassium, Blood 4.1 mmol/L (3.5-5.5); Sodium, Blood 140 mmol/L (136-145); Total Protein, Blood 6.1 g/dL (6.4-8.2); Troponin I <0.015 ng/mL (0.000-0.040)
[2019-01-25] MEDS ORDERED: PRINIVIL10 MG PO (16:33)
[2019-01-25] MEDS ORDERED: Oxycodone-Apap1 EAC3 PO (16:33)
[2019-01-25 18:02] LABS: Campylobacter Sp Not Detected (NOT DETECT)
[2019-01-25 18:03] LABS: Adenovirus F 40/41 Not Detected (NOT DETECT); Astrovirus Not Detected (NOT DETECT); Cryptosporidium Not Detected (NOT DETECT); Cyclospora Cayetanensis Not Detected (NOT DETECT); E. Coli O157 Not Detected (NOT DETECT); Entamoeba Histolytica Not Detected (NOT DETECT); Enteroaggregative E. coli-EAEC Not Detected (NOT DETECT); Enteropathogenic E. coli-EPEC Not Detected (NOT DETECT); Enterotoxigenic E. coli-ETEC Not Detected (NOT DETECT); Giardia Lamblia Not Detected (NOT DETECT); Norovirus GI/GII Not Detected (NOT DETECT); Plesiomonas Shigelloides Not Detected (NOT DETECT); Rotavirus A Not Detected (NOT DETECT); Salmonella Sp Not Detected (NOT DETECT); Sapovirus Not Detected (NOT DETECT); Shiga Toxin-prod E. coli-STEC Not Detected (NOT DETECT); Shigella/Enteroin E. coli-EIEC Not Detected (NOT DETECT); Vibrio Cholerae Not Detected (NOT DETECT); Vibrio Sp Not Detected (NOT DETECT); Yersinia Enterocolitica Not Detected (NOT DETECT)
--- NOTE | 2019-01-25 18:50 | NUR ---
PT ARRIVED TO ICU 5 FROM ER VIA GURNEY. PT TRANSFERED TO BED WITH SLIDER SHEET. PT IS AWAKE AND ALERT. ANSWERS QUESTIONS APPROPRIATELY BUT IS LOWER [place] AND THIS CAN BE A BARRIER AT TIMES. HAS FIRST UNIT OF PRBC'S RUNNING.
[2019-01-25 19:52] LABS: International Normalized Ratio 1.08; Prothrombin Time Results 11.4 Sec (9.7-11.5)
--- NOTE | 2019-01-25 21:16 | NUR ---
DR. WOODARD CALLED ABOUT CONSULT. SINCE PT IS HEMODYNAMICALLY STABLE AT THE MOMENT AND HAS NOT BEEN SEEN BY GI HE WILL WAIT UNTIL TOMORROW TO SEE PT.
--- NOTE | 2019-01-25 22:27 | NUR ---
PT STATES HE IS OK WITH CPR AND LIFE SAVING MEASURES. CALLED JEREMY PATTON FOR FULL CODE ORDER.
--- NOTE | 2019-01-25 23:13 | NUR ---
PT TRIED TO USE URINAL WITHOUT SUCCESS. PT STATES HE NORMALLY GETS TO THE BATHROOM. EDUCATED THAT HE CANNOT GET OOB JUST YET DUE TO BLEEDING AND LOW H&H. WENT TO PLACE CATHETER PER ORDERS BUT PT HAS EXTREMELY SMALL OPENING TO URETHRA THAT IS ALMOST NON EXISTANT. PT SAYS HE SEES A DOCTOR FOR IT. WHEN ASKED IF HE SELF CATHS AT HOME HE MENTIONS SOMETHING ABOUT A SPOON AND THAT HE TAKES CARE OF IT HIMSELF. DIFFICULT TO FOLLOW THIS CONVERSATION. WILL CONTINUE TO MONITOR AND SEE WHAT H&H REDRAW IS TO SEE IF HE CAN MAYBE GET OOB TO VOID.
--- NOTE | 2019-01-25 23:58 | NUR ---
PT WAS ABLE TO GET TO BSC WITH 2 PERSON ASSIST. WAS ABLE TO VOID AND HAD BM THAT WAS BROWN, NO BLOOD.
[2019-01-26 00:18] LABS: Hematocrit 28.3 % (37.0-53.0); Hemoglobin 9.3 g/dL (13.5-17.5)
[2019-01-26 03:18] LABS: BASOPHILS ABSOLUTE AUTO 0.02 K/mm3 (0.00-0.23); BASOPHILS PERCENT AUTO 0 % (0-2); EOSINOPHILS PERCENT AUTO 0 % (0-6); Hematocrit 24.1 % (37.0-53.0); Hemoglobin 7.7 g/dL (13.5-17.5); IMMATURE GRAN ABSOLUTE AUTO 0.03 K/mm3 (0.00-0.10); IMMATURE GRAN PERCENT AUTO 0 % (0-1); LYMPHOCYTES ABSOLUTE AUTO 0.93 K/mm3 (0.84-5.20); LYMPHOCYTES PERCENT AUTO 10 % (21-46); MONOCYTES ABSOLUTE AUTO 0.61 K/mm3 (0.16-1.47); MONOCYTES PERCENT AUTO 6 % (4-13); Mean Corpuscular HGB 29.2 pg (26.0-34.0); Mean Platelet Volume 9.5 fL (9.1-12.4); NEUTROPHILS ABSOLUTE AUTO 8.08 K/mm3 (1.96-9.15); NEUTROPHILS PERCENT AUTO 84 % (41-73); Platelet Count 147 K/mm3 (150-400); RDW Coefficient Variation 13.6 % (11.7-14.2); RDW Standard Deviation 46.1 fL (35.1-46.3); Red Blood Cell Count 2.64 M/mm3 (4.30-5.90); White Blood Cell Count 9.67 K/mm3 (4.00-11.30)
[2019-01-26 03:22] LABS: Mean Corpuscular Volume 91 fL (80-100)
[2019-01-26 03:33] LABS: Bun/Creatinine Ratio 33.3 (12.0-20.0); Calcium, Blood 7.7 mg/dL (8.5-10.1); Creatinine, Blood 1.29 mg/dL (0.60-1.20); Potassium, Blood 3.9 mmol/L (3.5-5.5)
--- NOTE | 2019-01-26 06:26 | NUR ---
SUMMARY PT RESTING IN BED. A/O TO PERSON AND PLACE. PT HAS CONFUSED CONVERSATION AT TIMES BUT WILL HAVE APPROPRIATE AT TIMES WELL. RECEIVED 2 UNITS OF BLOOD. HYPOTENSIVE THIS AM WHILE SLEEPING. NO SIGN OF BLEEDING. HAD BM THAT WAS BROWN. NO SIGN OF DISTRESS.
--- NOTE | 2019-01-26 07:20 | NUR ---
START OF SHIFT NOTE: RECEIVED REPORT FROM HEMALATHA CRAWFORD, ASSUMED CARE, PATIENT IS LYING IN BED UNDER A "HEAP" OF BLANKETS, PATIENT IS ALERT AND ORIENTED TO SELF, [place], PATIENT KNOWS HE IS IN [place] IN ROOM 5 AND CAME DOWN A LONG HALLWAY, UNABLE TO TELL ME HE IS IN THE HOSPITAL OR WHY HE IS HERE, DOES NOT KNOW WHAT DAY IT IS OR WHAT TIME, BUT KNOWS WHO THE PRESEIDENT IS, LUNG SOUNDS ARE DIMINISHED THROUGHOUT, PATIENT HAS A DUAL AV PACEMAKER AND PACER SPIKES ARE VISIBLE, 12 LEAD EKG DONE AND ATRIAL PACER SPIKES ARE NOTED, BOWEL TONES ARE HYPOACTIVE, PEDAL PULSES ARE STRONG BILATERALLY, PATIENT USES URINAL WITH ASSIST, UP TO CHAIR, WATCHING TV, CALL LIGHT IN REACH, WILL CONTINUE TO MONITOR.
--- NOTE | 2019-01-26 08:03 | NUR ---
PATIENT IS AFEBRILE AND DENIES PAIN AT THIS TIME.
--- NOTE | 2019-01-26 08:51 | NUR ---
THIS RN CALLED PATIENT'S FEMALE FRIEND JARAD JENIFER TO OBTAIN SOME INFORMATION, JARAD STATED THAT PATIENT IS A DNR AND SHE WILL BE HERE SOMETIME TODAY.
--- NOTE | 2019-01-26 09:10 | NUR ---
DR. LONGORIA ON PHONE, WOULD LIKE CLARIFICATION ABOUT CODE STATUS, WILL FIND OUT AND CALL DR. LONGORIA BACK, CONTACTED KEYANA SAINZ, BURGLAR ALARM MECHANIC TO ASSIST WITH FINDING POLST, SHE WILL REPORT BACK TO THIS RN.
--- NOTE | 2019-01-26 10:58 | NUR ---
PATIENT CONTINUES TO BE UP IN CHAIR, LOOKING THROUGH HIS BELONGINGS, CALL LIGHT IN REACH, WILL CONTINUE TO MONITOR.
--- NOTE | 2019-01-26 12:18 | NUR ---
Initial Visit: Pt is alert, oriented. He is confused occasionally; it does not appear that he would be an appropriate decision maker, however. He is able to state place he is in. He is not fully understanding why he is here. He is able to tell me that he was given blood transfustions and it may be from "something in my abd." He denies pain at this time, but describes profound fatigue. He denies anxiety. In the room also, are his current girlfriend and his . His and he are . He has been with his current girlfriend for around 4 years. The women are squabbling in the room. The is putting up a strong argument that she has never been out of his life, "and I don't know what he has told you." Current girlfriend states, "well you don't help enough and I never see you." Spoke with pt's /decision maker. She is recording events and making notes. She is prepared to help make decisions based on his "best interests." Updated nurse on witnessed conversation.
--- NOTE | 2019-01-26 12:30 | NUR ---
DR. LONGORIA IN TO SEE PATIENT, SPOKE WITH AND FRIEND, BOTH AT BEDSIDE, WILL DO EGD WITHIN THE NEXT 2 HOURS.
--- NOTE | 2019-01-26 13:17 | NUR ---
EGD CREW HERE TO SET UP FOR PROCEDURE, PATIENT RETURNED TO BED.
--- NOTE | 2019-01-26 14:13 | NUR ---
MAC CASE WITH ANETHESIA. SEE ANETHESIA FOR MEDS RECEIVED.
--- NOTE | 2019-01-26 14:37 | NUR ---
PATIENT CONTINUES TO BE DROWSY FROM EGD, PER DR. LONGORIA, NO ACTIVE BLEEDING, PROTONIX DRIP DISOCNTINUED AND PATIENT STARTED ON A CLEAR LIQUID DIET, WILL GIVE ICE CHIPS SOON PATIENT IS MORE AWAKE, AND FRIEND AT BEDSIDE, CALL LIGHT IN REACH, WILL CONTINUE TO MONITOR.
--- NOTE | 2019-01-26 14:47 | NUR ---
DR. BERHANE VELIZ IN TO SEE PATIENT, NEW ORDERS RECEIVED.
--- NOTE | 2019-01-26 15:01 | NUR ---
PATIENT HAD SOME SIPS OF WATER AND EATING JELLO, NO PROBLEM SWALLOWING, REPORTS NO SORENESS IN THROAT, CALL LIGHT IN REACH, WILL CONTINUE TO MONITOR.
--- NOTE | 2019-01-26 17:55 | NUR ---
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 VILLARREAL SURGERY CALLED AND SIGNED OFF ON THE CASE, DR. LONGORIA IN AND EGD WAS DONE, NO ACTIVE BLEEDING FOUND, PATIENT IS NOW ON A FULL LIQUID DIET, PRIOR TO PROCEDURE THERE WAS CONFUSION ABOUT PATIENT'S CODE STATUS, POLST IN CHART, PATIENT IS A DNR, ALSO CAME IN TO SEE PATIENT, SHE IS THE DECISION MAKER ON MEDICAL TREATMENT, FRIEND JARAD WAS IN [place] AND BOTH LADIES MET FOR THE FIRST TIME, SOMETIMES TENSION NOTED IN THE ROOM, BUT THEY WERE ABLE TO TALK ABOUT ISSUES AND RESOLVE DIFFERENCES, PATIENT CONTINUES TO USE URINAL, PATIENT RECEIVED ONE UNIT OF PRBC'S AFTER PROCEDURE, TOLERATED WELL, SBP'S NOW IN 100'S, FOR DETAILS SEE SHIFT ASSESSMENT DOCUMENTATION AND NURSES NOTES, CALL LIGHT IN REACH, WILL CONTINUE TO MONITOR.
--- NOTE | 2019-01-26 20:22 | NUR ---
PT RESTING IN BED. GOT UP TO BSC WITH 2 PERSON ASSIST. HAD LOOSE BROWN/YELLOW BM THEN BACK TO BED. EDUCATED PT ABOUT REPOSITIONING IN BED TO PREVENT SKIN BREAKDOWN. PT HAS REDNESS ON COCCYX AND BUTTOCKS. REPOSITIONED TO L SIDE. WEAK T/O WHEN GETTING OOB. FOLLOWING DIRECTION, KNOWS SOME OF EVENTS THAT HAPPENED TODAY, KNOWS HE IS IN HOSPITAL BUT GETS CONFUSED TO HOSPITAL ROUTINE. NEEDS FREQUENT REMINDERS. CALL LIGHT IN REACH. PT USES CALL LIGHT SOMETIMES.
[2019-01-27 04:01] LABS: BASOPHILS ABSOLUTE AUTO 0.02 K/mm3 (0.00-0.23); BASOPHILS PERCENT AUTO 0 % (0-2); EOSINOPHILS ABSOLUTE AUTO 0.04 K/mm3 (0.00-0.68); EOSINOPHILS PERCENT AUTO 1 % (0-6); Hemoglobin 8.4 g/dL (13.5-17.5); IMMATURE GRAN ABSOLUTE AUTO 0.01 K/mm3 (0.00-0.10); IMMATURE GRAN PERCENT AUTO 0 % (0-1); LYMPHOCYTES ABSOLUTE AUTO 1.08 K/mm3 (0.84-5.20); LYMPHOCYTES PERCENT AUTO 19 % (21-46); MONOCYTES ABSOLUTE AUTO 0.39 K/mm3 (0.16-1.47); MONOCYTES PERCENT AUTO 7 % (4-13); Mean Corpuscular HGB 29.9 pg (26.0-34.0); Mean Corpuscular HGB Conc 32.3 g/dL (31.5-36.5); Mean Corpuscular Volume 93 fL (80-100); Mean Platelet Volume 9.4 fL (9.1-12.4); NEUTROPHILS ABSOLUTE AUTO 4.04 K/mm3 (1.96-9.15); NEUTROPHILS PERCENT AUTO 72 % (41-73); Platelet Count 129 K/mm3 (150-400); RDW Standard Deviation 47.8 fL (35.1-46.3); Red Blood Cell Count 2.81 M/mm3 (4.30-5.90); White Blood Cell Count 5.58 K/mm3 (4.00-11.30)
[2019-01-27 04:28] LABS: Albumin, Blood 2.3 g/dL (3.4-5.0); Anion Gap 7 mmol/L (6-16); Blood Urea Nitrogen 27 mg/dL (8-24); Bun/Creatinine Ratio 27.2 (12.0-20.0); CO2, Blood 18 mmol/L (21-32); CPK Creatine Kinase 122 U/L (39-308); Calcium, Blood 7.5 mg/dL (8.5-10.1); Chloride, Blood 121 mmol/L (98-108); Creatine Kinase MB 2.9 ng/mL (0.0-3.6); Creatine Kinase MB Index 2.4 (0.0-4.0); Creatinine, Blood 0.99 mg/dL (0.60-1.20); Glomerular Filtration Rate >60 (60-); Glucose, Blood 97 mg/dL (70-99); Magnesium, Blood 1.7 mg/dL (1.6-2.4); Phosphorus, Blood 3.4 mg/dL (2.5-4.9); Potassium, Blood 3.5 mmol/L (3.5-5.5); Sodium, Blood 146 mmol/L (136-145); Troponin I 0.025 ng/mL (0.000-0.040)
--- NOTE | 2019-01-27 06:07 | NUR ---
SUMMARY PT WAS ABLE TO GET SOME SLEEP LAST NIGHT. MORE ORIENTED THIS AM. ORIENTED TO PERSON, , PLACE, AND SOME EVENTS FROM PREVIOUS SHIFT. ABLE TO SIT UP AND EAT PUDDING THIS AM. NO SIGNS OF BLEEDING. HAD A BM THAT WAS BROWN/YELLOW DURING THE NIGHT. NO SIGN OF DISTRESS.
--- NOTE | 2019-01-27 08:09 | NUR ---
BEGINNING OF SHIFT Assumed care at 0700. Bedside report recieved from Corazon PENNY. Pt on room air. SpO2 90% or greater. 100% paced per heart monitor, rate 61. Pt on full liquid diet, tolerating well. Bed in lowest position. Call light in reach. Pt denies need at this time.
--- NOTE | 2019-01-27 10:20 | NUR ---
DR GOMES IN TO SEE PT Discussed plan of care. Pt okay for medical floor status. He would like for pt to remain on telemetry. Okay to advance diet.
--- NOTE | 2019-01-27 17:57 | NUR ---
SUMMARY No acute changes since initial assessment. Pt medical floor status without telemetry. Pt paced per heart monitor, rate 60s. Remains on room air. SpO2 90% or greater. Pt OOB several times a day to ambulate around room and around unit. Pt tolerates acitivity well. Pt has had small loose yellow/green bowel movemements. Voids small amounts of urine into urinal.
--- NOTE | 2019-01-27 18:42 | NUR ---
TRANSFER NOTE RECEIVED HANDOFF FROM ICU NURSE J LUIS. PT TRANSFERED TO UNIT VIA WHEELCHAIR. PT ORIENTED TO UNIT, CALL LIGHT WITHIN REACH.
--- NOTE | 2019-01-28 04:16 | NUR ---
SUMMARY NO ACUTE CHANGES NOTED THROUGH THE NIGHT. PT REMAINS ON ROOM AIR, RESP UNLABORED. VSS. A&O X3, OCCASIONAL FORGETFULNESS NOTED. PT IS INDEPENDENT IN ROOM. PT STATES STOOLS HAVE SLOWED DOWN IN FREQUENCY AND DENIES ABD PAIN/NAUSEA. TOLERATING PO INTAKE. TYLENOL WAS GIVEN FOR RIGHT KNEE PAIN. PT STATES HE USES A "CREAM" AT HOME BUT WAS UNABLE TO RECALL THE NAME. SCD'S ARE ON. CALL LIGHT IN REACH. WCTM.
[2019-01-28 04:52] LABS: BASOPHILS ABSOLUTE AUTO 0.01 K/mm3 (0.00-0.23); BASOPHILS PERCENT AUTO 0 % (0-2); EOSINOPHILS ABSOLUTE AUTO 0.07 K/mm3 (0.00-0.68); EOSINOPHILS PERCENT AUTO 2 % (0-6); Hematocrit 25.8 % (37.0-53.0); Hemoglobin 8.2 g/dL (13.5-17.5); IMMATURE GRAN ABSOLUTE AUTO 0.02 K/mm3 (0.00-0.10); IMMATURE GRAN PERCENT AUTO 1 % (0-1); LYMPHOCYTES ABSOLUTE AUTO 0.86 K/mm3 (0.84-5.20); LYMPHOCYTES PERCENT AUTO 20 % (21-46); MONOCYTES PERCENT AUTO 7 % (4-13); Mean Corpuscular HGB 29.3 pg (26.0-34.0); Mean Corpuscular HGB Conc 31.8 g/dL (31.5-36.5); Mean Corpuscular Volume 92 fL (80-100); Mean Platelet Volume 9.3 fL (9.1-12.4); NEUTROPHILS ABSOLUTE AUTO 2.98 K/mm3 (1.96-9.15); NEUTROPHILS PERCENT AUTO 70 % (41-73); Platelet Count 129 K/mm3 (150-400); RDW Coefficient Variation 13.9 % (11.7-14.2); RDW Standard Deviation 47.1 fL (35.1-46.3); White Blood Cell Count 4.24 K/mm3 (4.00-11.30)
[2019-01-28 05:08] LABS: Anion Gap 7 mmol/L (6-16); Blood Urea Nitrogen 19 mg/dL (8-24); Bun/Creatinine Ratio 20.8 (12.0-20.0); CO2, Blood 19 mmol/L (21-32); Calcium, Blood 7.8 mg/dL (8.5-10.1); Chloride, Blood 117 mmol/L (98-108); Creatinine, Blood 0.91 mg/dL (0.60-1.20); Glomerular Filtration Rate >60 (60-); Glucose, Blood 124 mg/dL (70-99); Potassium, Blood 3.5 mmol/L (3.5-5.5); Sodium, Blood 143 mmol/L (136-145)
[2019-01-28] MEDS ORDERED: Pedi-Dri 100,0060 GM TOP (12:49)
[2019-01-28] MEDS ORDERED: VANCOCIN HCL125 MG PO (13:08)
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
== END 2019-01-28 13:28 | disposition home or self-care (01) | DRG 871 ==
LOC: ER 15:25 → ICUE 17:48 → ICUW 17:48 → ICUE 18:47 → MEDS 01-27 18:15 → ENPENDDIS 01-28 12:00 → MEDS 01-28 13:28
PROVIDERS: Family Medicine; Nurse Practitioner Acute Care; Physician Assistant; ADMIT Internal Medicine
PROC: 0DJ68ZZ Inspection of Stomach, Via Natural or Artificial Opening Endoscopic (ICD-10-PCS; principal; 2019-01-25)
PROC: 30233N1 Transfusion of Nonautologous Red Blood Cells into Peripheral Vein, Percutaneous Approach (ICD-10-PCS; 2019-01-25)
DX: A41.9 Sepsis, unspecified organism (principal); J96.01 Acute respiratory failure with hypoxia; N17.9 Acute kidney failure, unspecified; A04.72 Enterocolitis due to Clostridium difficile, not specified as recurrent; K51.011 Ulcerative (chronic) pancolitis with rectal bleeding; E44.0 Moderate protein-calorie malnutrition; R65.20 Severe sepsis without septic shock; F03.90 Unspecified dementia, unspecified severity, without behavioral disturbance, psychotic disturbance, mood disturbance, and anxiety; D50.0 Iron deficiency anemia secondary to blood loss (chronic); I25.10 Atherosclerotic heart disease of native coronary artery without angina pectoris; E78.5 Hyperlipidemia, unspecified; Z95.0 Presence of cardiac pacemaker; D63.8 Anemia in other chronic diseases classified elsewhere; K74.60 Unspecified cirrhosis of liver; N40.0 Benign prostatic hyperplasia without lower urinary tract symptoms; Z86.718 Personal history of other venous thrombosis and embolism; Z79.01 Long term (current) use of anticoagulants; E11.9 Type 2 diabetes mellitus without complications; Z87.891 Personal history of nicotine dependence
CPT/HCPCS: 0097U; 36415; 36430; 71045; 74176; 80047; 80048; 80053; 80069; 82272; 82550; 82553; 82947; 83605; 83735; 83880; 84484; 85014; 85018; 85025; 85610; 85730; 86850; 86900; 86901; 86923; 87040; 87324; 90670; 93005; 93010; 96361; 96374; 97162; 97166; 97530; 99285-25; A9270; C9113; G0009; J0171; J0610; J2370; J2543; J2704; J7030; P9016

== ENCOUNTER → 2019-02-04 | Outpatient (CLI) | payer MEDICARE ==
[~2019-02-04] MED LIST changes: +Oxycodone-Apap1 EAC3 PO; +PRINIVIL10 MG PO; +Pedi-Dri 100,0060 GM TOP; +VANCOCIN HCL125 MG PO
== END | disposition home or self-care (01) ==
LOC: LAB SHORT 10:25 → LAB EV 10:25
DX: T14.8XXA Other injury of unspecified body region, initial encounter (principal)
CPT/HCPCS: 87070; 87205

== ENCOUNTER 2019-02-17 19:23 | Inpatient (IN) | payer MEDICARE ==
[~2019-02-17] VITALS: Ht 172.7 cm; Wt 73.7 kg
[2019-02-17 20:11] LABS: Hematocrit 33.6 % (37.0-53.0); Hemoglobin 10.4 g/dL (13.5-17.5); Mean Corpuscular HGB 27.7 pg (26.0-34.0); Mean Corpuscular Volume 90 fL (80-100); Platelet Count 128 K/mm3 (150-400); RDW Coefficient Variation 14.2 % (11.7-14.2); RDW Standard Deviation 46.7 fL (35.1-46.3); Red Blood Cell Count 3.75 M/mm3 (4.30-5.90); White Blood Cell Count 10.46 K/mm3 (4.00-11.30)
[2019-02-17 20:32] LABS: Alanine Aminotransfer (ALT/SGP 73 U/L (12-78); Albumin, Blood 2.9 g/dL (3.4-5.0); Albumin/Globulin Ratio 0.8 (0.8-1.8); Alk Phos 75 U/L (50-136); Anion Gap 12 mmol/L (6-16); Aspartate Aminotrans (AST/SGOT 215 U/L (12-37); Bilirubin, Total 1.1 mg/dL (0.1-1.0); Blood Urea Nitrogen 45 mg/dL (8-24); Bun/Creatinine Ratio 22.5 (12.0-20.0); CO2, Blood 20 mmol/L (21-32); Calcium, Blood 8.7 mg/dL (8.5-10.1); Chloride, Blood 111 mmol/L (98-108); Ethanol (Alcohol), Blood, Med <3 mg/dL; Globulin, Blood 3.7 g/dL (2.2-4.0); Glomerular Filtration Rate 34 (60-); Glucose, Blood 127 mg/dL (70-99); Potassium, Blood 4.1 mmol/L (3.5-5.5); Sodium, Blood 143 mmol/L (136-145); Total Protein, Blood 6.6 g/dL (6.4-8.2)
[2019-02-17 20:58] LABS: BAND PERCENT MAN 21 % (0-8); BASOPHILS PERCENT MAN 0 % (0-2); EOSINOPHILS PERCENT MAN 0 % (0-6); LYMPHOCYTES ABSOLUTE MAN 0.31 K/mm3 (0.84-5.20); LYMPHOCYTES PERCENT MAN 3 % (21-46); METAMYELOCYTE PERCENT MAN 2 % (0-0); MONOCYTES PERCENT MAN 2 % (4-13); NEUTROPHILS ABSOLUTE MAN 9.72 K/mm3 (1.96-9.15); SEG NEUTROPHILS PERCENT MAN 72 % (41-73); TOTAL CELLS COUNTED 100
[2019-02-17] MEDS ORDERED: ELIQUIS5 M3 PO (21:08)
[2019-02-17 21:14] LABS: Creatine Kinase MB 32.1 ng/mL (0.0-3.6); Troponin I 0.405 ng/mL (0.000-0.040)
[2019-02-17 21:45] LABS: Creatine Kinase MB Index 0.7 (0.0-4.0)
[2019-02-18 03:21] LABS: Hematocrit 24.7 % (37.0-53.0); Hemoglobin 7.9 g/dL (13.5-17.5); Mean Corpuscular HGB 28.1 pg (26.0-34.0); Mean Corpuscular Volume 88 fL (80-100); Mean Platelet Volume 11.2 fL (9.1-12.4); Platelet Count 76 K/mm3 (150-400); RDW Coefficient Variation 14.3 % (11.7-14.2); Red Blood Cell Count 2.81 M/mm3 (4.30-5.90)
[2019-02-18 03:39] LABS: Albumin, Blood 2.1 g/dL (3.4-5.0); Albumin/Globulin Ratio 0.8 (0.8-1.8); Bilirubin, Total 0.8 mg/dL (0.1-1.0); Bun/Creatinine Ratio 26.5 (12.0-20.0); Calcium, Blood 7.7 mg/dL (8.5-10.1); Creatinine, Blood 1.62 mg/dL (0.60-1.20); Globulin, Blood 2.6 g/dL (2.2-4.0); Potassium, Blood 3.2 mmol/L (3.5-5.5); Total Protein, Blood 4.7 g/dL (6.4-8.2)
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
--- NOTE | 2019-02-18 08:00 | NUR ---
INITIAL SUMMARY PT ALERT AND ORIENT TIMES TWO, DISORIENT TO PLACE AND CIRCUMSTANCES. FOLLOWS ALL COMMANDS AND COOPRATIVE. LEVO REMAINS AND WILL WEAN OFF PER MD ORDER. SBP IN THE 110S WITH HR PACED. PALP PULSES T/O WITH NO EDEMA. 2L NC WITH SATS WNL AND CLEAR AND DIM BILAT. TOBIAS PLACED USINF A SUCTION CATH. MD ADVISED. DRAINING HAZY YELLOW URINE WITH UA SENT. ABGD SOFT ROUND AND NONTENDER WITH BTS T/O AND NO BM. BILAT LE WOUNDS, SEE FLOWSHEET. WILL CONT TO MONITOR.
[2019-02-18 08:05] LABS: Source, Urine Clean Catch
[2019-02-18 08:09] LABS: Appearance, Urine Hazy (Clear); Bilirubin, Urine Neg (Neg); Blood, Urine 5+ (Neg); Color, Urine Yellow (P-Yellow); Glucose Qualitative, Urine Neg (Neg); Ketones, Urine 1+ (Neg); Leukocyte Esterase, Urine 3+ (Neg); Nitrite, Urine Neg (Neg); Protein, Urine 3+ (Neg); Urobilinogen, Urine NORM (Normal)
[2019-02-18 08:12] LABS: PCO2 Arterial 25.1 mmHg (35-45); PO2 Arterial 98.6 mmHg (80-100); pH Blood Arterial 7.44 (7.35-7.45)
[2019-02-18 08:30] LABS: Bacteria Many /hpf; Squamous Epithelial Cells Not Seen /hpf (Few); White Blood Cells, Urine 25-50 /hpf (0-5)
[2019-02-18 08:32] LABS: U Amphetamine Screen Not Detected; U Barbituate Screen Not Detected; U Benzodiazapine Screen Not Detected; U Buprenorphine Screen Not Detected; U Cannabinoids Screen Not Detected; U Cocaine Screen Not Detected; U Methadone Screen Not Detected; U Methamphetamine Screen Not Detected; U Opiates Screen Not Detected; U Oxycodone Screen DETECTED; U Phencyclidine Screen Not Detected
[2019-02-18 08:33] LABS: U Propoxyphene Screen Not Detected
[2019-02-18 08:37] LABS: Hematocrit 25.5 % (37.0-53.0); Hemoglobin 8.1 g/dL (13.5-17.5)
--- NOTE | 2019-02-18 13:43 | NUR ---
PT UPDATE POSITIVE BLOOD CULTURES RECEIVED, UA CULTURES RECEIVED, MD ADVISED. LEVO REMAINS OFF. PT BECOMING MORE ALERT AND ORIENT. ADEQUATE UO VIA FOLY. 2LNC RESP STABLE. WILL CONT TO MONITOR
[2019-02-18 16:57] LABS: Calcium, Blood 7.4 mg/dL (8.5-10.1); Creatinine, Blood 1.26 mg/dL (0.60-1.20); Potassium, Blood 3.5 mmol/L (3.5-5.5)
--- NOTE | 2019-02-18 21:12 | NUR ---
ASSUMPTION OF CARE: PT ALERT AND ORIENTED, ABLE TO FOLLOW COMMANDS. FEBRILE BEGINNING OF SHIFT. LUNG SOUNDS CLEAR AND DIM IN BASES. SP02 >90% ON 2L NC. HEART SOUNDS DISTANT, PT IS PACED, HR IN THE 70S. SBP STABLE. PT HAS PEDS CATH IN PLACE THAT DAY SHIFT PLACED. DRAINING CLEAR YELLOW URINE. BILAT EXTREMITY BRUISING/SCABS. L ELBOW SKIN TEAR. 20 G RAC SL, 18G LAC SL. RIJ INFUSING WITH LR AT 100MLS/HR. WILL CONTINUE TO MONITOR
[2019-02-19 04:03] LABS: Hematocrit 24.4 % (37.0-53.0); Hemoglobin 7.8 g/dL (13.5-17.5); Mean Corpuscular HGB 28.1 pg (26.0-34.0); Mean Corpuscular Volume 88 fL (80-100); Mean Platelet Volume 11.8 fL (9.1-12.4); Platelet Count 62 K/mm3 (150-400); RDW Coefficient Variation 14.5 % (11.7-14.2); RDW Standard Deviation 46.5 fL (35.1-46.3); Red Blood Cell Count 2.78 M/mm3 (4.30-5.90); White Blood Cell Count 5.58 K/mm3 (4.00-11.30)
[2019-02-19 04:22] LABS: Alanine Aminotransfer (ALT/SGP 45 U/L (12-78); Albumin, Blood 1.8 g/dL (3.4-5.0); Albumin/Globulin Ratio 0.6 (0.8-1.8); Alk Phos 52 U/L (50-136); Anion Gap 8 mmol/L (6-16); Aspartate Aminotrans (AST/SGOT 88 U/L (12-37); Bilirubin, Total 0.8 mg/dL (0.1-1.0); Blood Urea Nitrogen 32 mg/dL (8-24); Bun/Creatinine Ratio 33.2 (12.0-20.0); CO2, Blood 22 mmol/L (21-32); Calcium, Blood 7.5 mg/dL (8.5-10.1); Chloride, Blood 116 mmol/L (98-108); Creatinine, Blood 0.97 mg/dL (0.60-1.20); Globulin, Blood 2.8 g/dL (2.2-4.0); Glomerular Filtration Rate >60 (60-); Glucose, Blood 80 mg/dL (70-99); Magnesium, Blood 1.6 mg/dL (1.6-2.4); Phosphorus, Blood 2.3 mg/dL (2.5-4.9); Potassium, Blood 3.3 mmol/L (3.5-5.5); Sodium, Blood 146 mmol/L (136-145); Total Protein, Blood 4.6 g/dL (6.4-8.2)
[2019-02-19 04:29] LABS: BAND PERCENT MAN 19 % (0-8); BASOPHILS PERCENT MAN 0 % (0-2); EOSINOPHILS PERCENT MAN 0 % (0-6); LYMPHOCYTES ABSOLUTE MAN 0.22 K/mm3 (0.84-5.20); LYMPHOCYTES PERCENT MAN 4 % (21-46); METAMYELOCYTE ABSOLUTE MAN 0.05 K/mm3 (0.00-0.00); METAMYELOCYTE PERCENT MAN 1 % (0-0); MONOCYTES ABSOLUTE MAN 0.33 K/mm3 (0.16-1.47); MONOCYTES PERCENT MAN 6 % (4-13); NEUTROPHILS ABSOLUTE MAN 4.96 K/mm3 (1.96-9.15); SEG NEUTROPHILS PERCENT MAN 70 % (41-73); TOTAL CELLS COUNTED 100
--- NOTE | 2019-02-19 05:44 | NUR ---
SHIFT SUMMARY: PT MORE A & O THIS SHIFT. ORIENTED TO SITUATION, SELF. AT TIMES CONFUSED. IS ABLE TO FOLLOW COMMANDS. LUNG SOUNDS ARE CLEAR, DIM AT BASES. SP02 >90% ON 2L NC. PT HAS PACEMAKER IN PLACE, HR IN THE 80S, SBP STABLE 110S. PT IS ABLE TO USE URINAL AT BEDSIDE, PRODUCING SMALL AMOUNTS OF DARK DOC COLOR URINE. NO CHANGES IN SKIN. 20G RAC SL, 18 G LAC SL. RIJ INFUSING WITH LR AT 100MLS/HR.
--- NOTE | 2019-02-19 08:44 | NUR ---
ASSUMED CARE: PT RESTING IN BED, ALERT, ABLE TO ANSWER ALL ORIENTATION QUESTIONS, BUT AFTER TALKING FURTHER WITH PT THERE DOES APPEAR TO BE SOME CONFUSION. PT TALKS ABOUT DOCTORS BEING IN THE ROOM TELLING HIM THAT HIS DAUGHTER WON'T SURVIVE, BUT THEN TALKS VERY CLEARLY ABOUT AN UPCOMING APPOINTMENT OF HIS WITH DR. BARAKAT. PT IS IRRITATED THAT HE IS HERE AND UPSET WITH HIS NEIGHBOR FOR PUTTING HIM HERE BECAUSE PT INSISTS HE WAS WORKING ON GETTING UP FROM THE FLOOR AND WOULD HAVE BEEN ABLE TO. PT IS REQUESTING SOMETHING TO EAT, WILL ASK THE MD WHEN THEY ROUND. ASSISTED PT WITH BRUSHING HIS TEETH INT HE MEANTIME. ATTENDS CHANGED. PT IS USING THE URINAL BUT STILL LEAKS OR MISSES A LITTLE BIT. COCCYX PINK BUT BLANCHABLE, PROTECTIVE DRESSING PLACED OVER IT. NO OTHER REQUESTS FROM PT. CONTINUING TO MONITOR.
--- NOTE | 2019-02-19 11:54 | NUR ---
REASSESSMENT: PT IS STILL SCATTERED A LITTLE IN HIS THOUGHTS WITH SOME CONFUSION, BUT ORIENTED TO WHAT IS GOING ON. HE GOT UP TO THE CHAIR TODAY AND WORKED WITH PHYSICAL THERAPY. HE SPENT A COUPLE HOURS UP IN THE CHAIR AND AFTER GETTING OK FROM DR. LIN TO START A DIET, ATE LUNCH WITHOUT ANY DIFFICULTY. PROTECTIVE DRESSING PLACED OVE RPT'S HIP AFTER HIS BATH THIS MORNING AND DRESSING OVER SKIN TEAR ON L FA CHANGED WELL. DR. LIN AND DR. OLIVEIRA GAVE OK FOR PT TO BE MED WITH TELE AFTER THEIR ROUNDS. ORDERS WELL TO DC IV FLUIDS AND REMOVE CENTRAL LINE. IV IN R ARM FLUSHES WELL.
--- NOTE | 2019-02-19 15:03 | NUR ---
TRANSFER: PT TRANSFERRED UP TO [facility] 340 VIA BED WITH NURSE. REPORT GIVEN TO HEMALATHA CUELLAR. PT HAD FRIEND IN ROOM BEFORE TRANSFER THAT TOOK HIS CLOTHES HOME TO WASH FOR HIM. PT HAD NO OTHER BELONGINGS WITH HIM. PT TOLERATED TRANSFER WELL.
--- NOTE | 2019-02-19 15:14 | NUR ---
PT ARRIVED TO THE MEDICAL FLOOR FROM THE ICU VIA GURNEY, THE PT IS A/OX3, MILD DEMENTIA/FORGETFULLNESS NOTICED, THE PT APPEARS TO BE BREATHING EASILY ON O2 @ 2L/MIN, REPORT WAS TAKEN FROM VALERIA ERRAND RUNNER I AGREE WITH HER ASSESSMENT, THE PT WAS ORIENTED TO THE ROOM LAYOUT AND CALL SYSTEM, CALL LIGHT IN REACH, WILL APPLY TELE WHEN ARRIVES, WILL CONTINUE TO MONITOR AND ASSESS FOR CHANGES
--- NOTE | 2019-02-19 16:46 | NUR ---
PT TRANSFERED TO MEDICAL FLOOR FROM THE ICU TODAY, SEEMS CONFUSED AT TIMES BUT A/OX3, PT IS PLEASANT AND COOPERATIVE, APPEARS TO BE BREATHING EASILY ON O2 AT THIS TIME, THE PT REPORTED SOME ABD TENDERNESS WITH REPOSTIONING ONLY, DECLINES ANY NEED FOR PAIN MEDICATION AT THIS TIME, THE PT IS A 1 PERSON ASSIST UP, PT IS WATCHING TV AT THIS TIME, CALL LIGHT IN REACH
--- NOTE | 2019-02-20 05:31 | NUR ---
SHIFT SUMMARY: PT A&O X4, HOWEVER FORGERTFUL AT TIMES. 100% PACED ON TELE. 2 ASSIST FOR TURNS. PT HAVING DIFFICULT TIME USING URINAL. PT REMINDED TO USE CALL LIGHT FOR ASSISTANCE. O2 STABLE ON 2L VIA NC. NEW DRESSING PLACED TO SKIN TEAR ON LEFT FOREARM. PT CALM AND COOPERATIVE WITH CARE. SALINE LOCKED.
[2019-02-20 05:48] LABS: BASOPHILS ABSOLUTE AUTO 0.01 K/mm3 (0.00-0.23); BASOPHILS PERCENT AUTO 0 % (0-2); EOSINOPHILS ABSOLUTE AUTO 0.05 K/mm3 (0.00-0.68); EOSINOPHILS PERCENT AUTO 1 % (0-6); Hematocrit 26.4 % (37.0-53.0); Hemoglobin 8.2 g/dL (13.5-17.5); IMMATURE GRAN ABSOLUTE AUTO 0.04 K/mm3 (0.00-0.10); IMMATURE GRAN PERCENT AUTO 1 % (0-1); LYMPHOCYTES ABSOLUTE AUTO 0.54 K/mm3 (0.84-5.20); LYMPHOCYTES PERCENT AUTO 13 % (21-46); MONOCYTES ABSOLUTE AUTO 0.31 K/mm3 (0.16-1.47); MONOCYTES PERCENT AUTO 7 % (4-13); Mean Corpuscular HGB 27.7 pg (26.0-34.0); Mean Corpuscular HGB Conc 31.1 g/dL (31.5-36.5); Mean Corpuscular Volume 89 fL (80-100); Mean Platelet Volume 11.5 fL (9.1-12.4); NEUTROPHILS ABSOLUTE AUTO 3.29 K/mm3 (1.96-9.15); NEUTROPHILS PERCENT AUTO 78 % (41-73); Platelet Count 60 K/mm3 (150-400); RDW Coefficient Variation 14.6 % (11.7-14.2); RDW Standard Deviation 47.7 fL (35.1-46.3); Red Blood Cell Count 2.96 M/mm3 (4.30-5.90); White Blood Cell Count 4.24 K/mm3 (4.00-11.30)
[2019-02-20 06:14] LABS: Anion Gap 7 mmol/L (6-16); Blood Urea Nitrogen 25 mg/dL (8-24); Bun/Creatinine Ratio 30.7 (12.0-20.0); CO2, Blood 24 mmol/L (21-32); CPK Creatine Kinase 352 U/L (39-308); Calcium, Blood 7.7 mg/dL (8.5-10.1); Chloride, Blood 114 mmol/L (98-108); Creatinine, Blood 0.81 mg/dL (0.60-1.20); Glomerular Filtration Rate >60 (60-); Glucose, Blood 133 mg/dL (70-99); Magnesium, Blood 1.6 mg/dL (1.6-2.4); Phosphorus, Blood 2.3 mg/dL (2.5-4.9); Potassium, Blood 3.3 mmol/L (3.5-5.5); Sodium, Blood 145 mmol/L (136-145)
--- NOTE | 2019-02-20 15:59 | NUR ---
SHIFT SUMMARY PT AWAKE DURING SHIFT REPORT. NO C/O. RESTING QUIETLY LF. PT A&O, BUT ALSO HAS SOME CONFUSION AND FORGETFULNESS. PT CAPITAN GRANDE BAND, BUT VERY TALKATIVE; WORRIED ABOUT HOW HE IS GOING TO GET BACK INTO HIS HOUSE. PT FOUND DOWN AT HOME AFTER 3 DAYS. ABRASIONS, BRUISING AND SKIN TEAR TO LFA A RESULT. PT VERY WEAK, BUT ATTEMPTS TO USE URINAL IN BED VOIDING ALL OVER. PT VERY DIFFICULT TO TURN AND CHANGE LINENS IN BED HE DOES NOT HELP MUCH D/T WEAKNESS AND BRUISING. PT LATER ASSISTED TO BSC THIS AM, DOING BETTER ONCE GETTING UP AND MOVING AROUND. STILL WEAK AND MOVING SLOWLY, BUT IMPROVED THE DAY WENT ON. DR DAVID IN TO SEE PT THIS AM. D/C ORDERS PLACED TO D/C TO . PT TO RECEIVE 10 DAYS IV ROCEPHIN AFTER D/C. CM IN TO SEE PT AND ARRANGE FOR NEEDED CARE AT D/C. PG PLACED TO [facility] BY ACCESS TECHTRACEY AND ACTION INSTALLER, BRANDI. PT TOLERATED WELL. FAMILY IN TO SEE PT THIS AFTERNOON. CM NOTIFIED AND CAME TO TO TALK WITH PT AND FAMILY. PT TO BE TX TO AT 1730. REPORT TO BE CALLED.
== END 2019-02-20 17:35 | DRG 871 ==
LOC: ER 19:23 → ICUE 02-18 00:22 → ICUW 02-18 00:22 → MEDS 02-18 00:22 → ICUE 02-18 00:55 → MEDS 02-19 14:37 → ENPENDDIS 02-20 11:15 → MEDS 02-20 17:35
PROVIDERS: Emergency Medicine; Internal Medicine Critical Care Medicine; Nurse Practitioner Acute Care; ADMIT Internal Medicine
DX: A41.9 Sepsis, unspecified organism (principal); R65.21 Severe sepsis with septic shock; G93.41 Metabolic encephalopathy; N17.0 Acute kidney failure with tubular necrosis; M62.82 Rhabdomyolysis; I95.9 Hypotension, unspecified; D64.9 Anemia, unspecified; E11.9 Type 2 diabetes mellitus without complications; D50.9 Iron deficiency anemia, unspecified; R40.1 Stupor; F03.90 Unspecified dementia, unspecified severity, without behavioral disturbance, psychotic disturbance, mood disturbance, and anxiety; E78.5 Hyperlipidemia, unspecified; G89.29 Other chronic pain; N40.1 Benign prostatic hyperplasia with lower urinary tract symptoms
CPT/HCPCS: 36415; 36600; 51798; 70450; 71045; 80048; 80053; 81001; 82550; 82553; 82803; 82947; 83605; 83735; 83880; 84100; 84484; 85014; 85018; 85025; 85027; 87040; 87077; 87086; 87186; 93005; 93010; 96360; 96361; 97163; 97530; 99285-25; A9270; C9113; G0480; J0692; J0696; J3370; J7030; J7050; J7060; J7070; J7120

== ENCOUNTER 2019-02-27 17:00 | Emergency (ER) | payer MEDICARE ==
[~2019-02-27] VITALS: Ht 172.7 cm; Wt 77.1 kg
[~2019-02-27 17:00] MED LIST changes: +ELIQUIS5 M3 PO
[2019-02-27] MEDS ORDERED: K-Phos Origina500 MG PO (18:14)
[2019-02-27] MEDS ORDERED: PANT40 PO (18:15)
[2019-02-27] MEDS ORDERED: Ceftriaxon1 GM/50 M1 IV (18:16)
[2019-02-27] MEDS ORDERED: Humalog100 UNIT/1 SC (18:17)
[2019-02-27 18:24] LABS: Alanine Aminotransfer (ALT/SGP 22 U/L (12-78); Albumin, Blood 2.1 g/dL (3.4-5.0); Albumin/Globulin Ratio 0.5 (0.8-1.8); Alk Phos 71 U/L (50-136); Anion Gap 10 mmol/L (6-16); Aspartate Aminotrans (AST/SGOT 14 U/L (12-37); Bilirubin, Total 0.3 mg/dL (0.1-1.0); Blood Urea Nitrogen 11 mg/dL (8-24); Bun/Creatinine Ratio 15.3 (12.0-20.0); CO2, Blood 22 mmol/L (21-32); Calcium, Blood 7.4 mg/dL (8.5-10.1); Chloride, Blood 107 mmol/L (98-108); Creatinine, Blood 0.72 mg/dL (0.60-1.20); Glomerular Filtration Rate >60 (60-); Glucose, Blood 201 mg/dL (70-99); Potassium, Blood 3.2 mmol/L (3.5-5.5); Sodium, Blood 139 mmol/L (136-145); Total Protein, Blood 6.1 g/dL (6.4-8.2)
[2019-02-27 19:06] LABS: BASOPHILS ABSOLUTE AUTO 0.02 K/mm3 (0.00-0.23); BASOPHILS PERCENT AUTO 0 % (0-2); EOSINOPHILS ABSOLUTE AUTO 0.04 K/mm3 (0.00-0.68); EOSINOPHILS PERCENT AUTO 1 % (0-6); Hemoglobin 7.5 g/dL (13.5-17.5); IMMATURE GRAN ABSOLUTE AUTO 0.05 K/mm3 (0.00-0.10); IMMATURE GRAN PERCENT AUTO 1 % (0-1); LYMPHOCYTES ABSOLUTE AUTO 0.86 K/mm3 (0.84-5.20); LYMPHOCYTES PERCENT AUTO 14 % (21-46); MONOCYTES ABSOLUTE AUTO 0.54 K/mm3 (0.16-1.47); MONOCYTES PERCENT AUTO 9 % (4-13); Mean Corpuscular HGB 27.2 pg (26.0-34.0); Mean Corpuscular HGB Conc 31.3 g/dL (31.5-36.5); Mean Corpuscular Volume 87 fL (80-100); Mean Platelet Volume 10.8 fL (9.1-12.4); NEUTROPHILS ABSOLUTE AUTO 4.82 K/mm3 (1.96-9.15); NEUTROPHILS PERCENT AUTO 76 % (41-73); Platelet Count 178 K/mm3 (150-400); RDW Coefficient Variation 15.1 % (11.7-14.2); RDW Standard Deviation 48.5 fL (35.1-46.3); Red Blood Cell Count 2.76 M/mm3 (4.30-5.90); White Blood Cell Count 6.33 K/mm3 (4.00-11.30)
== END 2019-02-27 21:26 | disposition home or self-care (01) ==
LOC: ER 17:00
PROVIDERS: Emergency Medicine
DX: E87.6 Hypokalemia (principal); D64.9 Anemia, unspecified; R79.9 Abnormal finding of blood chemistry, unspecified; I11.0 Hypertensive heart disease with heart failure; I50.22 Chronic systolic (congestive) heart failure; E11.51 Type 2 diabetes mellitus with diabetic peripheral angiopathy without gangrene; I73.9 Peripheral vascular disease, unspecified; N40.0 Benign prostatic hyperplasia without lower urinary tract symptoms; F03.90 Unspecified dementia, unspecified severity, without behavioral disturbance, psychotic disturbance, mood disturbance, and anxiety; E78.5 Hyperlipidemia, unspecified; Z86.718 Personal history of other venous thrombosis and embolism; Z79.899 Other long term (current) drug therapy; Z79.84 Long term (current) use of oral hypoglycemic drugs; Z88.6 Allergy status to analgesic agent; Z88.8 Allergy status to other drugs, medicaments and biological substances; Z86.73 Personal history of transient ischemic attack (TIA), and cerebral infarction without residual deficits; Z87.891 Personal history of nicotine dependence
CPT/HCPCS: 36415; 80053; 85025; 93005; 93010; 99284-25

== ENCOUNTER 2019-03-07 18:15 | Emergency (ER) | payer MEDICARE ==
[~2019-03-07] VITALS: Ht 172.7 cm; Wt 77.1 kg
[~2019-03-07 18:15] MED LIST changes: +Ceftriaxon1 GM/50 M1 IV; +Humalog100 UNIT/1 SC; +K-Phos Origina500 MG PO; +PANT40 PO
[2019-03-07] MEDS ORDERED: K-Phos Origina500 MG PO (18:50)
[2019-03-07] MEDS ORDERED: ACET325 (18:51)
[2019-03-07] MEDS ORDERED: BISA10S PR (18:53)
[2019-03-07] MEDS ORDERED: Anti-Diarrheal2 MG PO (18:54)
[2019-03-07] MEDS ORDERED: MILK OF MA400 MG/5 M PO (18:54)
[2019-03-07] MEDS ORDERED: CEPH500 PO (20:16)
== END 2019-03-07 21:10 | disposition home or self-care (01) ==
LOC: ER 18:15
DX: S51.012A Laceration without foreign body of left elbow, initial encounter (principal); I11.0 Hypertensive heart disease with heart failure; I50.22 Chronic systolic (congestive) heart failure; E11.51 Type 2 diabetes mellitus with diabetic peripheral angiopathy without gangrene; I73.9 Peripheral vascular disease, unspecified; I48.91 Unspecified atrial fibrillation; N40.1 Benign prostatic hyperplasia with lower urinary tract symptoms; N13.9 Obstructive and reflux uropathy, unspecified; Z23 Encounter for immunization; Z88.6 Allergy status to analgesic agent; Z91.048 Other nonmedicinal substance allergy status; Z88.8 Allergy status to other drugs, medicaments and biological substances; Z79.899 Other long term (current) drug therapy; Z79.4 Long term (current) use of insulin; Z87.891 Personal history of nicotine dependence; W19.XXXA Unspecified fall, initial encounter
CPT/HCPCS: 12004; 73080; 90471; 90714; 99283-25; A9270; A9270-GY; J7030

== ENCOUNTER → 2019-09-18 | Outpatient (CLI) | payer MEDICARE ==
[~2019-09-18] MED LIST changes: +ACET325; +Anti-Diarrheal2 MG PO; +BISA10S PR; +CEPH500 PO; +MILK OF MA400 MG/5 M PO
[2019-09-19 10:40] LABS: Bilirubin, Urine Neg (Neg); Blood, Urine 2+ (Neg); Glucose Qualitative, Urine Neg (Neg); Ketones, Urine Neg (Neg); Leukocyte Esterase, Urine 3+ (Neg); Nitrite, Urine Neg (Neg); Protein, Urine 3+ (Neg); Specific Gravity, Urine 1.015 (1.003-1.022); Urobilinogen, Urine NORM (Normal)
[2019-09-19 10:48] LABS: Appearance, Urine Cloudy (Clear); Color, Urine Yellow (P-Yellow)
[2019-09-19 10:50] LABS: Bacteria Many /hpf; Squamous Epithelial Cells Few /hpf (Few)
[2019-09-19 10:51] LABS: Triple Phosphate Crystals Rare /hpf
== END | disposition home or self-care (01) ==
LOC: LAB 19:45 → LAB SHORT 19:45
PROVIDERS: Internal Medicine
DX: N39.0 Urinary tract infection, site not specified (principal)
CPT/HCPCS: 81001; 87077; 87086; 87186

== ENCOUNTER → 2019-11-23 | Outpatient (CLI) | payer MEDICARE ==
[2019-11-23 11:59] LABS: Source, Urine Clean Catch
[2019-11-23 13:47] LABS: Appearance, Urine Hazy (Clear); Bilirubin, Urine Neg (Neg); Blood, Urine 5+ (Neg); Color, Urine Yellow (P-Yellow); Glucose Qualitative, Urine Neg (Neg); Ketones, Urine Neg (Neg); Leukocyte Esterase, Urine 3+ (Neg); Nitrite, Urine Neg (Neg); Protein, Urine 2+ (Neg); Urobilinogen, Urine NORM (Normal)
[2019-11-23 14:00] LABS: White Blood Cells, Urine TNTC /hpf (0-5)
[2019-11-23 14:02] LABS: Bacteria Many /hpf; Squamous Epithelial Cells Rare /hpf (Few)
== END ==
LOC: LAB SHORT 11:56 → LAB 11:56
PROVIDERS: Internal Medicine
DX: N39.0 Urinary tract infection, site not specified (principal)
CPT/HCPCS: 81001; 87077; 87086; 87186

== ENCOUNTER → 2019-12-22 | Outpatient (CLI) | payer MEDICARE ==
[2019-12-22 18:34] LABS: Source, Urine Clean Catch
[2019-12-22 19:57] LABS: Bilirubin, Urine Neg (Neg); Blood, Urine 4+ (Neg); Glucose Qualitative, Urine Neg (Neg); Ketones, Urine Neg (Neg); Leukocyte Esterase, Urine 3+ (Neg); Nitrite, Urine Neg (Neg); Protein, Urine 2+ (Neg); Urobilinogen, Urine NORM (Normal)
[2019-12-22 20:07] LABS: Appearance, Urine Cloudy (Clear); Color, Urine Yellow (P-Yellow)
[2019-12-22 20:08] LABS: Bacteria Many /hpf; Red Blood Cells, Urine 0-2 /hpf (0-2); Squamous Epithelial Cells Not Seen /hpf (Few); White Blood Cells, Urine TNTC /hpf (0-5)
== END ==
LOC: LAB SHORT 18:33 → LAB 18:33
PROVIDERS: Internal Medicine
DX: N39.0 Urinary tract infection, site not specified (principal)
CPT/HCPCS: 81001; 87077; 87086; 87186